=== PATIENT | female | born 1975 | race Caucasian/White ===

== ENCOUNTER 2016-06-08 00:42 | Inpatient (IN) | payer OTHER ==
[2016-06-08] MEDS ORDERED: ONDANSETRON 4 MG/2 ML VIAL IVP STA (00:52)
[2016-06-08] MEDS ORDERED: HYDROmorphone 1 MG/ML 1 ML SYRINGE IVP STA ×2 (00:52→02:31)
[2016-06-08] MEDS ORDERED: SODIUM CHLORIDE 0.9% 1,000 ML IV STA (00:52)
[2016-06-08] MEDS ORDERED: RX INFO: IV CONTRAST WAS GIVEN 1 EACH MISC MISCELLANE PRN (01:12)
[2016-06-08 01:18] LABS: Basophils # (A) 0.1 k/uL (0-0.2); Basophils % (A) 0 %; CH 29.4; CHCM 33.9; Eosinophils # (A) 0.3 k/uL (0-0.7); Eosinophils % (A) 2 %; HCT 38.8 % (34.0-46.0); HDW 2.33; HGB 13.2 gm/dL (11.4-16.0); Luc # (Auto) 0.14; Luc % (Auto) 1; Lymphocytes # (A) 2.2 k/uL (1.0-4.8); Lymphocytes % (A) 15 %; MCH 29.7 pg (25.0-35.0); MCHC 34.1 g/dL (31.0-37.0); MCV 87.1 fL (80.0-100.0); Mean Platelet Volume 7.1; Monocytes # (A) 0.5 k/uL (0-1.0); Monocytes % (A) 4 %; Neutrophils # (A) 11.2 k/uL (1.3-7.7); Neutrophils % (A) 78 %; RBC 4.45 m/uL (3.80-5.40); RDW 12.9 % (11.5-15.5); WBC 14.4 k/uL (3.8-10.6); WBC (Perox) 15.08
[2016-06-08] MEDS ORDERED: KETOROLAC 30 MG/ML 1 ML VIAL IVP STA (01:19)
[2016-06-08 01:25] LABS: ALT 32 U/L (9-52); AST 18 U/L (14-36); Alkaline Phosphatase 89 U/L (38-126); Amylase <30 U/L (30-110); Anion Gap 10 mmol/L; Blood Urea Nitrogen 13 mg/dL (7-17); Calcium 9.8 mg/dL (8.4-10.2); Carbon Dioxide 25 mmol/L (22-30); Chloride 106 mmol/L (98-107); Glucose 110 mg/dL (74-99); Non-African American GFR(MDRD) >60 (>60 ml/min/1.73 sqM); Potassium 4.2 mmol/L (3.5-5.1); Sodium 141 mmol/L (137-145); Total Bilirubin 0.5 mg/dL (0.2-1.3); Total Protein 7.7 g/dL (6.3-8.2)
--- NOTE | 2016-06-08 01:34 | ED ---
General Adult HPI - General Chief complaint: Abdominal Pain Stated complaint: LRQ Pain Time Seen by Provider: 06/08/16 00:52 Source: patient, RN notes reviewed Mode of arrival: ambulatory Limitations: no limitations - History of Present Illness Initial comments: Patient is a 32-year-old female with chief complaint of abdominal pain for approximately 2 days. She reports that it was mainly in her epigastric and periumbilical region yesterday however the pain has persisted and is now migrated towards right lower quadrant. She states that she's had a history of C -sections but denies any other abdominal surgeries. She reports that she is nauseated but denies any vomiting. She states she had a normal bowel movement today and was able to eat normally. She states that the pain is not worse with eating. She denies any dysuria, hematuria or vaginal discharge. She is currently using the NuvaRing and her last menstrual period was proximally 5 years ago. She states that she has a sharp stabbing pain in her right lower quadrant. She reports that she is extremely tender. Patient denies any recent fever, chills, shortness of breath, chest pain, back pain, abdominal pain, nausea vomiting, numbness or tingling, dysuria or hematuria, constipation or diarrhea, headaches or visual changes, or any other current symptoms - Related Data Home Medications Medication Instructions Recorded Confirmed Etonogestrel/Ethinyl Estradiol 1 each VG 06/08/16 [Nuvaring Vaginal Ring] Allergies Allergy/AdvReac Type Severity Reaction Status Date / Time No Known Allergies Allergy Verified 06/08/16 00:50 Review of Systems ROS Statement: Those systems with pertinent positive or pertinent negative responses have been documented in the HPI. ROS Other: All systems not noted in ROS Statement are negative. Past Medical History Past Medical History: No Reported History History of Any Multi-Drug Resistant Organisms: None Reported Past Surgical History: Section Past Psychological History: No Psychological Hx Reported Smoking Status: Current every day smoker Past Alcohol Use History: Rare Past Drug Use History: None Reported General Exam - General Exam Comments Initial Comments: Well-appearing 40-year-old female. No acute distress. Limitations: no limitations General appearance: alert, in no apparent distress Head exam: Present: atraumatic, normocephalic, normal inspection Eye exam: Present: normal appearance, PERRL, EOMI. Absent: scleral icterus, conjunctival injection, periorbital swelling ENT exam: Present: normal exam, normal oropharynx, mucous membranes moist, TM's normal bilaterally Neck exam: Present: normal inspection. Absent: tenderness, meningismus, lymphadenopathy Respiratory exam: Present: normal lung sounds bilaterally. Absent: respiratory distress, wheezes, rales, rhonchi, stridor Cardiovascular Exam: Present: regular rate, normal rhythm, normal heart sounds. Absent: systolic murmur, diastolic murmur, rubs, gallop, clicks GI/Abdominal exam: Present: soft, tenderness (RLQ tenderness. ), normal bowel sounds. Absent: distended, guarding, rebound, rigid Extremities exam: Present: normal inspection, full ROM, normal capillary refill. Absent: tenderness, pedal edema, joint swelling, calf tenderness Back exam: Present: normal inspection Neurological exam: Present: alert, oriented X3, CN II-XII intact Psychiatric exam: Present: normal affect, normal mood Skin exam: Present: warm, dry, intact, normal color. Absent: rash Course Vital Signs 06/08/16 06/08/16 00:46 02:54 Temperature 98.1 F Pulse Rate 98 81 Respiratory 20 18 Rate Blood Pressure 147/85 120/70 O2 Sat by Pulse 100 100 Oximetry Medical Decision Making - Medical Decision Making Patient is a 32-year-old female with chief complaint of abdominal pain for approximately 2 days. She reports that it was mainly in her epigastric and periumbilical region yesterday however the pain has persisted and is now migrated towards right lower quadrant. She states that she's had a history of C -sections but denies any other abdominal surgeries. She denies any significant past medical history. Patient laboratory show evidence of leukocytosis of white count of 14.4. CT abdomen and pelvis was obtained. There is evidence of acute appendicitis. Patient will be started on IV Zosyn. Patient will be given pain medication as well. Dr. Acosta Spangler will be consulted in regards to the acute appendicitis. I discussed this case with Dr. Lakhani. - Lab Data Result diagrams: 06/08/16 01:05 06/08/16 01:05 Lab Results 06/08/16 06/08/16 06/08/16 Range/Units 01:05 01:05 01:05 WBC 14.4 H (3.8-10.6) k/uL RBC 4.45 (3.80-5.40) m/uL Hgb 13.2 (11.4-16.0) gm/dL Hct 38.8 (34.0-46.0) % MCV 87.1 (80.0-100.0) fL MCH 29.7 (25.0-35.0) pg MCHC 34.1 (31.0-37.0) g/dL RDW 12.9 (11.5-15.5) % Plt Count 250 (150-450) k/uL Neutrophils % 78 % Lymphocytes % 15 % Monocytes % 4 % Eosinophils % 2 % Basophils % 0 % Neutrophils # 11.2 H (1.3-7.7) k/uL Lymphocytes # 2.2 (1.0-4.8) k/uL Monocytes # 0.5 (0-1.0) k/uL Eosinophils # 0.3 (0-0.7) k/uL Basophils # 0.1 (0-0.2) k/uL Sodium 141 (137-145) mmol/L Potassium 4.2 (3.5-5.1) mmol/L Chloride 106 (98-107) mmol/L Carbon Dioxide 25 (22-30) mmol/L Anion Gap 10 mmol/L BUN 13 (7-17) mg/dL Creatinine 0.80 (0.52-1.04) mg/dL Est GFR (MDRD) Af Amer >60 (>60 ml/min/1.73 sqM) Est GFR (MDRD) Non-Af >60 (>60 ml/min/1.73 sqM) Glucose 110 H (74-99) mg/dL Plasma Lactic Acid Butser 1.0 (0.7-2.0) mmol/L Calcium 9.8 (8.4-10.2) mg/dL Total Bilirubin 0.5 (0.2-1.3) mg/dL AST 18 (14-36) U/L ALT 32 (9-52) U/L Alkaline Phosphatase 89 (38-126) U/L Total Protein 7.7 (6.3-8.2) g/dL Albumin 4.2 (3.5-5.0) g/dL Amylase <30 L (30-110) U/L Lipase 66 (23-300) U/L Urine Color Urine Appearance (Clear) Urine pH (5.0-8.0) Ur Specific Trout (1.001-1.035) Urine Protein (Negative) Urine Glucose (UA) (Negative) Urine Ketones (Negative) Urine Blood (Negative) Urine Nitrate (Negative) Urine Bilirubin (Negative) Urine Urobilinogen (<2.0) mg/dL Ur Leukocyte Esterase (Negative) Urine RBC (0-5) /hpf Urine WBC (0-5) /hpf Ur Squamous Epith Cells (0-4) /hpf Urine Bacteria (None) /hpf Urine Mucus (None) /hpf Urine HCG, Qual (Not Detectd) 06/08/16 06/08/16 Range/Units 01:25 01:25 WBC (3.8-10.6) k/uL RBC (3.80-5.40) m/uL Hgb (11.4-16.0) gm/dL Hct (34.0-46.0) % MCV (80.0-100.0) fL MCH (25.0-35.0) pg MCHC (31.0-37.0) g/dL RDW (11.5-15.5) % Plt Count (150-450) k/uL Neutrophils % % Lymphocytes % % Monocytes % % Eosinophils % % Basophils % % Neutrophils # (1.3-7.7) k/uL Lymphocytes # (1.0-4.8) k/uL Monocytes # (0-1.0) k/uL Eosinophils # (0-0.7) k/uL Basophils # (0-0.2) k/uL Sodium (137-145) mmol/L Potassium (3.5-5.1) mmol/L Chloride (98-107) mmol/L Carbon Dioxide (22-30) mmol/L Anion Gap mmol/L BUN (7-17) mg/dL Creatinine (0.52-1.04) mg/dL Est GFR (MDRD) Af Amer (>60 ml/min/1.73 sqM) Est GFR (MDRD) Non-Af (>60 ml/min/1.73 sqM) Glucose (74-99) mg/dL Plasma Lactic Acid Buster (0.7-2.0) mmol/L Calcium (8.4-10.2) mg/dL Total Bilirubin (0.2-1.3) mg/dL AST (14-36) U/L ALT (9-52) U/L Alkaline Phosphatase (38-126) U/L Total Protein (6.3-8.2) g/dL Albumin (3.5-5.0) g/dL Amylase (30-110) U/L Lipase (23-300) U/L Urine Color Yellow Urine Appearance Clear (Clear) Urine pH 6.0 (5.0-8.0) Ur Specific Trout 1.010 (1.001-1.035) Urine Protein Negative (Negative) Urine Glucose (UA) Negative (Negative) Urine Ketones Negative (Negative) Urine Blood Small H (Negative) Urine Nitrate Negative (Negative) Urine Bilirubin Negative (Negative) Urine Urobilinogen <2.0 (<2.0) mg/dL Ur Leukocyte Esterase Negative (Negative) Urine RBC 3 (0-5) /hpf Urine WBC 1 (0-5) /hpf Ur Squamous Epith Cells <1 (0-4) /hpf Urine Bacteria Rare H (None) /hpf Urine Mucus Rare H (None) /hpf Urine HCG, Qual Not Detected (Not Detectd) - Radiology Data Radiology results: report reviewed Disposition Clinical Impression: Acute appendicitis Disposition: ADMITTED IP TO THIS [facility] Condition: Stable Time of Disposition: 02:42
[2016-06-08 01:47] LABS: Appearance,Urine Clear (Clear); Bacteria,Urine Rare /hpf; Bilirubin,Urine Negative (Negative); Glucose,Urine (UA) Negative (Negative); Ketones,Urine Negative (Negative); Leukocyte Esterase,Urine Negative (Negative); Mucus,Urine Rare /hpf; Nitrite,Urine Negative (Negative); Particle Count 1200; Protein,Urine Negative (Negative); RBC,Urine 3 /hpf (0-5); Squamous Epithelial Cell,Urine <1 /hpf (0-4); UA Billing (MACRO vs. MICRO) MICRO; Urobilinogen,Urine <2.0 mg/dL (<2.0); WBC,Urine 1 /hpf (0-5)
--- NOTE | 2016-06-08 02:16 | CT ---
EXAM: CT Abdomen and Pelvis With Intravenous Contrast. CLINICAL HISTORY: Reason: RLQ abdominal pain TECHNIQUE: Axial computed tomography images of the abdomen and pelvis with intravenous contrast. CTDI is 11.00 mGy and DLP is 530.00 mGy-cm COMPARISON: No relevant prior studies available. FINDINGS: Lower thorax: No acute findings. ABDOMEN: Liver: Unremarkable. No mass. Gallbladder and bile ducts: Unremarkable. No calcified stones. No ductal dilation. Pancreas: Unremarkable. No ductal dilation. No mass. Spleen: Unremarkable. No splenomegaly. Adrenals: Unremarkable. No mass. Kidneys and ureters: Unremarkable. No hydronephrosis. No solid mass. PELVIS: Bladder: Unremarkable. No mass. Reproductive: Unremarkable as visualized. Appendix: Dilated appendix, containing a 15 mm appendicolith proximally within, with periappendiceal inflammatory changes consistent with acute appendicitis. There is trace amount of adjacent free fluid without evidence of loculated drainable fluid collection to suggest abscess, nor free air. ABDOMEN + PELVIS: Stomach and bowel: Note is made of debris-filled stomach. There are punctate foci of increased density admixed with stool in the right colon, presumably from previously ingested material. No obstruction. No mucosal thickening. Peritoneum: See above. Lymph nodes: There are a few borderline prominent right lower quadrant mesenteric nodes, presumably reactive/related. Vasculature: Unremarkable. No aortic aneurysm. Bones: No acute fracture. Smoothly marginated endplate irregularities at several levels, which may be a combination of degenerative and/or sequela from prior Scheuermann's disease. IMPRESSION: Findings consistent with acute appendicitis, as above. [employer] 06/08/16 02:21 Call Doctor Regarding Appendicitis, called YAJAIRA Dunn on 06/08 02:21 (-05:00)
[2016-06-08] MEDS ORDERED: diphenhydrAMINE 50 MG/ML 1 ML VIAL IVP STA (02:31)
[2016-06-08] MEDS ORDERED: PIPERACILLIN-TAZOBACTAM 3.375 GM in DEXTROSE/WATER 1 50ML.BAG IVPB STA (02:32)
[2016-06-08] MEDS ORDERED: HYDROmorphone 1 MG/ML 1 ML SYRINGE IV PRN (02:43)
[2016-06-08] MEDS ORDERED: ONDANSETRON 4 MG/2 ML VIAL IVP PRN ×2 (02:43→11:14)
[2016-06-08] MEDS ORDERED: LORazepam 2 MG/ML SYRINGE IV PRN (02:43)
[2016-06-08] MEDS ORDERED: NALOXONE 0.4 MG/ML 1 ML VIAL IV PRN ×2 (02:43→11:14)
[2016-06-08] MEDS: SODIUM CHLORIDE 0.9% 1,000 ML IV SCH ×3 (02:54→23:28)
[2016-06-08] MEDS ORDERED: diphenhydrAMINE 50 MG/ML 1 ML VIAL IVP PRN (03:04)
[2016-06-08 03:54] VITALS: BMI 30.7
[2016-06-08] MEDS: KETOROLAC 30 MG/ML 1 ML VIAL IVP PRN ×2 (04:09→23:39)
--- NOTE | 2016-06-08 08:21 | P.GSHP ---
History of Present Illness H&P Date: 06/08/16 Chief Complaint: Abdominal pain Patient is a 40-year-old white female who approximately 2 days ago began having some generalized abdominal pain. The pain then moved to the right lower quadrant area and she presented to the emergency room. A computed tomography scan was performed which revealed findings consistent with appendicitis. Patient's white blood cell count is 14.4. The patient has persistent pain in the right lower quadrant. Past surgical history: 2 Past medical history: Negative ALLERGIES: Reaction to Darvocet Review of systems: HEENT negative lungs smoker Heart negative GI as above 2 - Constitutional Constitutional: Reports as per HPI - Cardiovascular Cardiovascular: Reports as per HPI - Respiratory Respiratory: Reports as per HPI - Gastrointestinal Gastrointestinal: Reports as per HPI - Genitourinary (Female) Genitourinary: Reports as per HPI Past Medical History Past Medical History: No Reported History History of Any Multi-Drug Resistant Organisms: None Reported Past Surgical History: Section Additional Past Surgical History / Comment(s): 2 secions Additional Past Anesthesia/Blood Transfusion Reaction / Comment(s): no history of blood transfuion.drop in BP with ceserean section Past Psychological History: No Psychological Hx Reported Smoking Status: Current every day smoker Past Alcohol Use History: Rare Past Drug Use History: None Reported - Past Family History Mother Family Medical History: No Reported History Medications and Allergies Home Medications Medication Instructions Recorded Confirmed Type Etonogestrel/Ethinyl Estradiol 1 each VG 06/08/16 History [Nuvaring Vaginal Ring] Allergies Allergy/AdvReac Type Severity Reaction Status Date / Time acetaminophen Allergy Itching Verified 06/08/16 03:55 [From Darvocet-N] propoxyphene Allergy Itching Verified 06/08/16 03:55 [From Darvocet-N] Surgical - Exam Vital Signs Temp Pulse Resp BP Pulse Ox 98.1 F 98 20 147/85 100 06/08/16 00:46 06/08/16 00:46 06/08/16 00:46 06/08/16 00:46 06/08/16 00:46 - General well developed, moderate distress, obese - Eyes normal ocular movement - ENT normal pinna, normal mucosa, no hearing loss - Neck no masses, trachea midline, no lymphadectomy - Respiratory normal expansion, normal respiratory effort, clear to auscultation - Cardiovascular Rhythm: regular Heart Sounds: normal: S1, S2 - Abdomen Patient with marked tenderness right lower quadrant positive guarding Remainder of abdomen is soft Abdomen: bowel sounds - Psychiatric oriented to time, oriented to person, oriented to place, speech is normal Results - Labs 06/08/16 01:05 06/08/16 01:05 - Imaging CT scan - abdomen: report reviewed, image reviewed CT scan - pelvis: report reviewed, image reviewed Assessment and Plan Plan: Impression/plan: 1. Acute appendicitis 2. Status post 2 Plan: 1. Laparoscopic possible open appendectomy and any indicated procedures Patient understands the risks and benefits and wishes to proceed.
[2016-06-08] MEDS ORDERED: HEPARIN SODIUM,PORCINE 5,000 UNIT/ML 1 ML VIAL SQ ONE (08:22)
[2016-06-08] MEDS ORDERED: fentaNYL (PF) 50 MCG/ML 2 ML AMP ONE (09:18)
[2016-06-08] MEDS ORDERED: ONDANSETRON 4 MG/2 ML VIAL ONE (09:18)
[2016-06-08] MEDS ORDERED: SUCCINYLCHOLINE CHLORIDE VIAL 200 MG/10 ML VIAL IV ONE (09:18)
[2016-06-08] MEDS ORDERED: ROCURONIUM BROMIDE 10 MG/ML 10 ML VIAL IV ONE (09:18)
[2016-06-08] MEDS ORDERED: MIDAZOLAM 2 MG/2 ML VIAL ONE (09:18)
[2016-06-08] MEDS ORDERED: PROPOFOL 10 MG/ML 20 ML VIAL IV ONE (09:18)
[2016-06-08] MEDS ORDERED: NEOSTIGMINE 1 MG/ML 10 ML VIAL ONE (09:18)
[2016-06-08] MEDS ORDERED: KETOROLAC 30 MG/ML 1 ML VIAL ONE (09:18)
[2016-06-08] MEDS ORDERED: LIDOCAINE 1% INJ 10MG/ML (20 ML MDV) SQ ONE (09:40)
[2016-06-08] MEDS ORDERED: SODIUM CHLORIDE 0.9% 1,000 ML IV ONE (09:40)
[2016-06-08] MEDS ORDERED: PIPERACILLIN-TAZOBACTAM 3.375 GM in DEXTROSE/WATER 1 50ML.BAG IVPB SCH ×2 (11:00→16:00)
--- NOTE | 2016-06-08 11:14 | P.OP ---
Date of Procedure: 06/08/16 Preoperative Diagnosis: Acute appendicitis Postoperative Diagnosis: Same, extensive adhesions Procedure(s) Performed: Laparoscopic appendectomy, laparoscopic lysis of adhesions Anesthesia: NAREN Surgeon: Jayleen Green Estimated Blood Loss (ml): 10 IV fluids (ml): 200 Urine output (ml): 60 Pathology: other (Appendix) Condition: stable Disposition: PACU Indications for Procedure: Acute abdomen acute appendicitis Operative Findings: Extensive adhesions, inflamed appendix Description of Procedure: The patient is a 40-year-old white female has had a several-day history of abdominal discomfort. This increased in nature and moved to the right lower quadrant area. Computed tomography scan finding and physical examination history were consistent with acute appendicitis. Patient was taken to the operating room after discussion of risks and benefits for laparoscopic possible open appendectomy. Patient has had 2 C-sections in the past and discussion was entertained preoperative regarding the possible need for adhesional lysis. The patient was taken to the operating room and the abdomen was prepped and draped in a sterile fashion. An infraumbilical incision was made and carried down to the fascia of the abdominal wall. This was elevated and under direct visualization the peritoneal cavity was entered. A balloon trocar was placed. Upon introduction of the trocar it was obvious that there were adhesions from the umbilicus extending inferior which were felt to be related to the prior C-sections. Were able to place #5 port in the suprapubic area under direct visualization and a #12 port which was blunt in the left lower quadrant area. However in order to facilitate further dissection it was necessary to carefully take down the adhesions to the anterior abdominal wall. This was accomplished using the Harmonic scalpel. An #5 camera was placed in the suprapubic area to facilitate the dissection. It was also necessary to change to an angled scope. It was necessary to change the balloon trocar during the course of the dissection secondary to deflation of the balloon. Additionally to provide better access an additional #5 port was placed in the right lower quadrant. Through careful dissection the adhesions were taken down from the anterior abdominal wall allowing visualization of the appendix, and manipulation of the appendix and mesoappendix via the trocar sites. After the adhesions had been taken down which took approximately half an hour the area of the appendix was addressed. The appendix was grasped using a Chester retractor. The mesoappendix was divided using the Harmonic scalpel to the base of the appendix. A stapling device was placed across the appendix and fired. The area was well evaluated and there was no evidence of any bleeding. The appendix was placed in a Pleatman sac and brought out through the #12 left lateral port site. Following this the abdomen was well irrigated. No evidence of any active bleeding was noted. The area where the adhesions had been taken down was well evaluated. The #5 right lower quadrant trocar was removed under direct visualization no evidence of any bleeding was noted. At this time the #12 port was removed this was a blunt trocar no evidence of active bleeding was identified. Despite this using direct visualization a Vicryl suture was placed at this site using a Lamont Mendosa device. Following this irrigation of the site did not reveal any evidence of any bleeding. The final #5 trocar was removed under direct visualization no evidence of bleeding was identified. The balloon trocar was removed and the fascia was closed using 0 Vicryl suture. Skin sites were closed using 4-0 Monocryl. One percent lidocaine was injected at the incision sites. All instrument and sponge counts were correct at the end of the case. Patient tolerated the procedure in stable condition.
[2016-06-08] MEDS: MEPERIDINE 50 MG/ML SYRINGE IVP ONE ×2 (11:15→11:20)
[2016-06-08] MEDS ORDERED: MIDAZOLAM 2 MG/2 ML VIAL IVP ONE (11:25)
[2016-06-08] MEDS: HYDROmorphone 1 MG/ML 1 ML SYRINGE IVP ONE ×2 (11:35→11:44)
[2016-06-08] MEDS: NICOTINE 14MG/24HR PATCH TRANSDERM SCH (12:34)
[2016-06-08] MEDS: DEXTROSE 5%-0.45% NACL 1,000 ML IV SCH ×2 (16:05→21:37)
[2016-06-08] MEDS: PIPERACILLIN-TAZOBACTAM 3.375 GM in DEXTROSE/WATER 1 50ML.BAG IVPB SCH ×2 (16:06→23:55)
[2016-06-08] MEDS: HYDROmorphone 1 MG/ML 1 ML SYRINGE IV PRN ×2 (16:11→20:46)
[2016-06-08] MEDS ORDERED: ACETAMINOPHEN TAB 325 MG TAB PO PRN (19:57)
[2016-06-08] MEDS: ACETAMINOPHEN TAB 325 MG TAB PO PRN (20:10)
[2016-06-08] MEDS: HEPARIN SODIUM,PORCINE 5,000 UNIT/ML 1 ML VIAL SQ SCH (20:48)
[2016-06-09] MEDS: DEXTROSE 5%-0.45% NACL 1,000 ML IV SCH ×2 (01:47→20:51)
[2016-06-09] MEDS: ACETAMINOPHEN TAB 325 MG TAB PO PRN (03:27)
[2016-06-09 07:12] LABS: Basophils % (A) 0 %; CH 29.3; CHCM 32.8; Eosinophils % (A) 0 %; HCT 33.5 % (34.0-46.0); HDW 2.23; HGB 10.7 gm/dL (11.4-16.0); Luc # (Auto) 0.09; Luc % (Auto) 2; Lymphocytes # (A) 1.2 k/uL (1.0-4.8); Lymphocytes % (A) 20 %; MCH 28.7 pg (25.0-35.0); MCV 89.8 fL (80.0-100.0); Mean Platelet Volume 6.6; Monocytes # (A) 0.3 k/uL (0-1.0); Monocytes % (A) 4 %; Neutrophils # (A) 4.4 k/uL (1.3-7.7); Neutrophils % (A) 74 %; RBC 3.73 m/uL (3.80-5.40); RDW 12.7 % (11.5-15.5); WBC 5.9 k/uL (3.8-10.6); WBC (Perox) 6.33
[2016-06-09] MEDS: PIPERACILLIN-TAZOBACTAM 3.375 GM in DEXTROSE/WATER 1 50ML.BAG IVPB SCH ×2 (07:18→17:47)
[2016-06-09] MEDS: SODIUM CHLORIDE 0.9% 1,000 ML IV SCH ×3 (07:26→20:56)
[2016-06-09] MEDS: NICOTINE 14MG/24HR PATCH TRANSDERM SCH (07:26)
[2016-06-09] MEDS: HEPARIN SODIUM,PORCINE 5,000 UNIT/ML 1 ML VIAL SQ SCH ×2 (07:26→20:51)
[2016-06-09] MEDS: PANTOPRAZOLE 40 MG/10 ML VIAL IV SCH (07:26)
[2016-06-09] MEDS: KETOROLAC 30 MG/ML 1 ML VIAL IVP PRN ×2 (09:05→21:51)
--- NOTE | 2016-06-09 10:20 | P.PN ---
Subjective 40-year-old female being seen with the surgeon at the bedside this morning. Patient is postop laparoscopic appendectomy laparoscopic lysis of adhesions done for an acute appendicitis on June 08. Postop did note the patient did run a temp maxed at 101.9 had 8:00 last evening. The temp this morning 99.2. The white count this morning is down to 5.9. On admission the white count was 14.4. Patient reports pain medication effective for pain control. Does have a Rex-Iyer drain in place currently patient is on a clear liquid diet there' s been no episodes of nausea or vomiting patient does report that she has been up ambulating. No stool passing gas Objective - Vital Signs Vital signs: Vital Signs Temp 99.2 F 06/09/16 07:31 Pulse 78 06/09/16 07:31 Resp 18 06/09/16 07:31 BP 107/69 06/09/16 07:31 Pulse Ox 96 06/09/16 07:31 Intake & Output 06/08/16 06/09/16 06/09/16 18:59 06:59 18:59 Intake Total 1362.5 1200 Output Total 320 Balance 1042.5 1200 Intake: IV 1350 1200 Dextrose 5%-0.45% NaCl 1, 800 000 ml @ 100 mls/hr IV . Q10H FOX Rx#:[id number] Sodium Chloride 0.9% 1, 500 400 000 ml @ 100 mls/hr IV . Q10H FOX Rx#:[id number] Intake, IV Titration 12.5 Amount Piperacillin-Tazobactam 3 12.5 .375 gm In Dextrose/Water 1 50ml.bag @ 12.5 mls/hr IVPB Q8HR FOX Rx#: [id number] Output: Urine 310 Estimated Blood Loss 10 Other: Voiding Method Toilet Toilet Toilet # Voids 1 2 1 - Exam Physical exam 40-year-old female resting in bed awake alert appears in no acute distress Lungs essentially clear adequate air movement on room air sats are 96% Heart S1-S2 audible and regular Abdomen surgical dressings dry no redness at the site slight surgical tenderness active bowel tones noted Rex-Iyer drain in place scant amount of serous drainage noted in the bulb no reports of nausea vomiting states urinating no difficulty extremities Venodyne's on to the bilateral lower extremities - Labs CBC & Chem 7: 06/09/16 06:50 06/08/16 01:05 Labs: Abnormal Lab Results - Last 24 Hours (Table) 06/09/16 Range/Units 06:50 RBC 3.73 L (3.80-5.40) m/uL Hgb 10.7 L (11.4-16.0) gm/dL Hct 33.5 L (34.0-46.0) % Microbiology - Last 24 Hours (Table) 06/08/16 10:51 Gram Stain - Preliminary Abdomen Wound Culture - Preliminary Gram Neg Bacilli 06/08/16 10:51 Anaerobic Culture - Preliminary Abdomen Assessment and Plan Plan: Impression Present on admission abdominal pain past several days right lower quadrant suspect due to acute pancreatitis Laparoscopic appendectomy, laparoscopic lysis of adhesions done on June 08 for acute pancreatitis Present on admission leukocytosis likely reactive Current every day smoker Postop episodes febrile Plan Continue postop surgical care Pain control Increase activity Increase the use of the incentive spirometer use every 1 hour while awake IV fluid for rehydration DVT and GI prophylaxis Repeat labs in the morning Diet to be advanced as tolerated Continue IV antibiotics Zosyn as ordered Follow-up on pending wound cultures Thyroid studies pending Await recommendations infectious disease Dr. Curry The above dictated assessment and findings were discussed with dr Soledad anders Impression and the plan of care have been dictated as directed. Faye Lara nurse practitioner acting as a scribe for Dr. Hanna
[2016-06-09 12:43] LABS: Appearance,Urine Clear (Clear); Bacteria,Urine Rare /hpf; Bilirubin,Urine Negative (Negative); Glucose,Urine (UA) Negative (Negative); Ketones,Urine Negative (Negative); Leukocyte Esterase,Urine Negative (Negative); Nitrite,Urine Negative (Negative); PH, Urine 6.5 (5.0-8.0); Particle Count 1907; Protein,Urine Negative (Negative); RBC,Urine 2 /hpf (0-5); Specific Gravity,Urine 1.006 (1.001-1.035); Squamous Epithelial Cell,Urine <1 /hpf (0-4); UA Billing (MACRO vs. MICRO) MICRO; Urobilinogen,Urine <2.0 mg/dL (<2.0); WBC,Urine 2 /hpf (0-5)
--- NOTE | 2016-06-09 19:48 | P.CONS ---
History of Present Illness - Reason for Consult Consult date: 06/09/16 - Chief Complaint Abdominal pain - History of Present Illness Very pleasant 40-year-old female with a 48 hour history of progressive abdominal pain. She has a history of some prior difficulties with gastritis and patient was concerned she was having these type of symptoms. However after work or abdominal pain markedly increased she felt nauseated but did not have emesis. She does he presented to the emergency center. There should evidence of fever and leukocytosis. Imaging studies reveal evidence of acute appendicitis. The patient consequently was taken to the operating room where laparoscopic appendectomy as well as lysis of adhesions occurred. Postoperatively patient has had fever and does have leukocytosis and with that the infectious diseases consultation was requested. Review of Systems HEENT:Denies headache or acute visual change. Denies sinus or mouth discomforts. Denies neck stiffness or pain. Denies significant oral cavity pain. Denies difficulty on swallowing. Lungs: Denies significant shortness of breath, cough, sputum production, or hemoptysis. Cardiovascular: Denies significant shortness of breath, chest pain, chest wall pain, orthopnea, dyspnea on exertion, syncope Gastrointestinal: As per the HPI Musculoskeletal: denies significant myalgias or arthralgias. No new joint swelling. Denies new back pain. Skin: Denies new rash or lesions. No new ulcers or wounds are related.. Neuro: Denies headache or visual change. Denies any new onset weakness or difficulty with ambulation. Denies falls or seizures. Psychiatric:Denies anxiety or depression. Endocrine: Denies significant fatigue, denies significant weight loss or weight gain. Past Medical History Past Medical History: No Reported History History of Any Multi-Drug Resistant Organisms: None Reported Past Surgical History: Section Additional Past Surgical History / Comment(s): 2 secions Additional Past Anesthesia/Blood Transfusion Reaction / Comm: no history of blood transfuion.drop in BP with ceserean section Past Psychological History: No Psychological Hx Reported Additional Psychological History / Comment(s): . Sole parent of her two teenage daughters. The father apparently does not help with child support and does not seem to have much custody. The patient is a tobacco smoker no alcohol use. Works for the [employer]. No experience. No international travel. No animals in the home. Appearance are alive and well in helpful Smoking Status: Current every day smoker Past Alcohol Use History: Rare Past Drug Use History: None Reported - Past Family History Mother Family Medical History: No Reported History Medications and Allergies Home Medications and Allergies Comment(s): Current Medications Acetaminophen (Tylenol Tab) 325 mg PO Q6HR PRN PRN Reason: Fever and/ or Mild Pain Acetaminophen (Tylenol Tab) 650 mg PO Q6HR PRN PRN Reason: Fever and/ or Moderate Pain Last Admin: 06/09/16 03:27 Dose: 650 mg Diphenhydramine HCl (Benadryl) 25 mg IVP Q6HR PRN PRN Reason: Allergy Symptoms Heparin Sodium (Porcine) (Heparin) 5,000 unit SQ Q12HR [facility] Last Admin: 06/09/16 07:26 Dose: 5,000 unit Hydromorphone HCl (Dilaudid) 1 mg IV Q3HR PRN PRN Reason: Severe Pain Last Admin: 06/08/16 20:46 Dose: 0.5 mg Sodium Chloride (Saline 0.9%) 1,000 mls @ 100 mls/hr IV .Q10H [facility] Last Admin: 06/09/16 07:26 Dose: Not Given Dextrose/Sodium Chloride (Dextrose 5%-1/2ns Iv Soln) 1,000 mls @ 100 mls/hr IV .Q10H [facility] Last Admin: 06/09/16 01:47 Dose: 100 mls/hr Piperacillin/Tazobactam/ (Dextrose 3.375 gm/ IV Solution) 50 mls @ 12.5 mls/hr IVPB Q8HR [facility] Last Admin: 06/09/16 17:47 Dose: 12.5 mls/hr Ketorolac Tromethamine (Toradol) 30 mg IVP Q6HR PRN PRN Reason: Moderate Pain Stop: 06/13/16 02:44 Last Admin: 06/09/16 09:05 Dose: 30 mg Lorazepam (Ativan) 0.5 mg IV Q6HR PRN PRN Reason: Anxiety Miscellaneous Information (Rx Info: Iv Contrast Was Given) 1 each MISCELLANE DAILY PRN PRN Reason: Per Protocol Stop: 06/10/16 01:13 Naloxone HCl (Narcan) 0.2 mg IV Q2M PRN PRN Reason: Opioid Reversal Nicotine (Habitrol 14mg/24hr Patch) 1 patch TRANSDERM DAILY [facility] Last Admin: 06/09/16 07:26 Dose: Not Given Ondansetron HCl (Zofran) 4 mg IVP Q8HR PRN PRN Reason: Nausea And Vomiting Pantoprazole Sodium (Protonix) 40 mg IV DAILY [facility] Last Admin: 06/09/16 07:26 Dose: 40 mg Home Medications Medication Instructions Recorded Confirmed Type Etonogestrel/Ethinyl Estradiol 1 ring VAGINAL Q28D 06/08/16 06/08/16 History [Nuvaring Vaginal Ring] Allergies Allergy/AdvReac Type Severity Reaction Status Date / Time acetaminophen Allergy Itching Verified 06/08/16 11:02 [From Darvocet-N] propoxyphene Allergy Itching Verified 06/08/16 11:02 [From Darvocet-N] Physical Exam Vitals: Vital Signs Temp Pulse Resp BP Pulse Ox 06/09/16 14:56 98.4 F 82 17 104/70 99 06/09/16 07:31 99.2 F 78 18 107/69 96 06/09/16 04:34 99.6 F 06/09/16 03:25 100.9 F H 06/09/16 00:49 99.6 F 89 18 101/57 95 06/08/16 21:48 99.7 F H 84 105/53 98 06/08/16 21:39 101.3 F H 06/08/16 19:49 101.9 F H 06/08/16 19:48 101.6 F H 84 16 123/56 98 Intake and Output 06/09/16 06/09/16 06/09/16 06:59 14:59 22:59 Intake Total 800 600 360 Balance 800 600 360 Intake: IV 800 Dextrose 5%-0.45% NaCl 1, 800 000 ml @ 100 mls/hr IV . Q10H [facility] Rx#:[id number] Oral 600 360 Other: Voiding Method Toilet Toilet Toilet # Voids 2 2 Pleasant 40-year-old woman not in distress HEENT: Anicteric conjunctiva are pink and moist nasal mucosa grossly intact without significant lesions, there is no thrush. Neck: The neck is supple without significant lymphadenopathy or thyromegaly. Lungs: Good bilateral air entry without significant crackles or wheezing. There is no significant bronchial sounds. There is no egophony or dullness. Heart: Regular rate and rhythm with an audible S1-S2, no S3 no S4. There is no significant murmur click or rub, PMI was nondisplaced. Abdomen: Few bowel sounds are noted. The trochanter sites are healing well. She still has tenderness in the right lower quadrant. No guarding or rebound. No epigastric tenderness. Extremities: The upper extremities have excellent pulses they are symmetric, no significant petechiae or telangiectasia. No splinter hemorrhages were noted. The lower extremities are free from significant edema. The peripheral pulses were 2+ and symmetric. Neuro: Awake alert oriented to person place and time. There are no acute new gross focal sensory motor deficits. Results CBC & Chem 7: 06/09/16 06:50 06/08/16 01:05 Labs: Abnormal Lab Results - Last 24 Hours (Table) 06/09/16 06/09/16 Range/Units 06:50 12:31 RBC 3.73 L (3.80-5.40) m/uL Hgb 10.7 L (11.4-16.0) gm/dL Hct 33.5 L (34.0-46.0) % Urine Blood Trace H (Negative) Urine Bacteria Rare H (None) /hpf Microbiology - Last 24 Hours (Table) 06/08/16 10:51 Gram Stain - Preliminary Abdomen Wound Culture - Preliminary Gram Neg Bacilli 06/08/16 10:51 Anaerobic Culture - Preliminary Abdomen Laboratory Results WBC 5.9 k/uL (3.8-10.6) 06/09/16 06:50 RBC 3.73 m/uL (3.80-5.40) L 06/09/16 06:50 Hgb 10.7 gm/dL (11.4-16.0) L 06/09/16 06:50 Hct 33.5 % (34.0-46.0) L 06/09/16 06:50 MCV 89.8 fL (80.0-100.0) 06/09/16 06:50 MCH 28.7 pg (25.0-35.0) 06/09/16 06:50 MCHC 32.0 g/dL (31.0-37.0) 06/09/16 06:50 RDW 12.7 % (11.5-15.5) 06/09/16 06:50 Plt Count 170 k/uL (150-450) 06/09/16 06:50 Neutrophils % 74 % 06/09/16 06:50 Lymphocytes % 20 % 06/09/16 06:50 Monocytes % 4 % 06/09/16 06:50 Eosinophils % 0 % 06/09/16 06:50 Basophils % 0 % 06/09/16 06:50 Neutrophils # 4.4 k/uL (1.3-7.7) 06/09/16 06:50 Lymphocytes # 1.2 k/uL (1.0-4.8) 06/09/16 06:50 Monocytes # 0.3 k/uL (0-1.0) 06/09/16 06:50 Eosinophils # 0.0 k/uL (0-0.7) 06/09/16 06:50 Basophils # 0.0 k/uL (0-0.2) 06/09/16 06:50 Sodium 141 mmol/L (137-145) 06/08/16 01:05 Potassium 4.2 mmol/L (3.5-5.1) 06/08/16 01:05 Chloride 106 mmol/L (98-107) 06/08/16 01:05 Carbon Dioxide 25 mmol/L (22-30) 06/08/16 01:05 Anion Gap 10 mmol/L 06/08/16 01:05 BUN 13 mg/dL (7-17) 06/08/16 01:05 Creatinine 0.80 mg/dL (0.52-1.04) 06/08/16 01:05 Est GFR (MDRD) Af Amer >60 (>60 ml/min/1.73 sqM) 06/08/16 01:05 Est GFR (MDRD) Non-Af >60 (>60 ml/min/1.73 sqM) 06/08/16 01:05 Glucose 110 mg/dL (74-99) H 06/08/16 01:05 Plasma Lactic Acid Buster 1.0 mmol/L (0.7-2.0) 06/08/16 01:05 Calcium 9.8 mg/dL (8.4-10.2) 06/08/16 01:05 Total Bilirubin 0.5 mg/dL (0.2-1.3) 06/08/16 01:05 AST 18 U/L (14-36) 06/08/16 01:05 ALT 32 U/L (9-52) 06/08/16 01:05 Alkaline Phosphatase 89 U/L (38-126) 06/08/16 01:05 Total Protein 7.7 g/dL (6.3-8.2) 06/08/16 01:05 Albumin 4.2 g/dL (3.5-5.0) 06/08/16 01:05 Amylase <30 U/L (30-110) L 06/08/16 01:05 Lipase 66 U/L (23-300) 06/08/16 01:05 TSH 0.762 mIU/L (0.465-4.680) 06/09/16 07:23 Free T4 1.91 ng/dL (0.78-2.19) 06/09/16 07:23 Free T3 pg/mL 3.3 pg/ml (2.8-5.3) 06/09/16 07:23 Urine Color Light Yellow 06/09/16 12:31 Urine Appearance Clear (Clear) 06/09/16 12:31 Urine pH 6.5 (5.0-8.0) 06/09/16 12:31 Ur Specific [place] 1.006 (1.001-1.035) 06/09/16 12:31 Urine Protein Negative (Negative) 06/09/16 12:31 Urine Glucose (UA) Negative (Negative) 06/09/16 12:31 Urine Ketones Negative (Negative) 06/09/16 12:31 Urine Blood Trace (Negative) H 06/09/16 12:31 Urine Nitrate Negative (Negative) 06/09/16 12:31 Urine Bilirubin Negative (Negative) 06/09/16 12:31 Urine Urobilinogen <2.0 mg/dL (<2.0) 06/09/16 12:31 Ur Leukocyte Esterase Negative (Negative) 06/09/16 12:31 Urine RBC 2 /hpf (0-5) 06/09/16 12:31 Urine WBC 2 /hpf (0-5) 06/09/16 12:31 Ur Squamous Epith Cells <1 /hpf (0-4) 06/09/16 12:31 Urine Bacteria Rare /hpf (None) H 06/09/16 12:31 Urine Mucus Rare /hpf (None) H 06/08/16 01:25 Urine HCG, Qual Not Detected (Not Detectd) 06/08/16 01:25 Microbiology 06/08/16 10:51 Abdomen Gram Stain - Preliminary 06/08/16 10:51 Abdomen Wound Culture - Preliminary Gram Neg Bacilli 06/08/16 10:51 Abdomen Anaerobic Culture - Preliminary Assessment and Plan (1) Acute appendicitis Narrative/Plan: 40-year-old woman with a history of abdominal pain without evidence of an acute appendicitis and subsequent placement taken the operating room for her laparoscopic appendectomy. She is now recovering in the postoperative time frame. She however had fever 101 last evening as well as some leukocytosis. Is feeling slightly better today. Culture showing evidence of gram-negative bacilli as expected. Being treated appropriately with piperacillin tazobactam at this time. Likely collagen morning will help direct her course of oral antibiotics at discharge. She does not have a history of extensive antibiotic exposure. She is looking forward to improving her diet and discharging tomorrow. She understands the surgeon is in charge of her ability to return to work which she is very concerned about because of her sole parent status. She does have many family members that will help. And suggest that she talks to the father of the children for help during this acute time frame. Status: Acute
[2016-06-09 20:22] VITALS: RESP 16
[2016-06-10] MEDS: PIPERACILLIN-TAZOBACTAM 3.375 GM in DEXTROSE/WATER 1 50ML.BAG IVPB SCH ×2 (00:06→08:03)
[2016-06-10 00:57] VITALS: PULSE 80
[2016-06-10] MEDS: DEXTROSE 5%-0.45% NACL 1,000 ML IV SCH (04:17)
[2016-06-10 06:43] LABS: Basophils % (A) 0 %; CH 29.4; CHCM 33.2; Eosinophils # (A) 0.1 k/uL (0-0.7); Eosinophils % (A) 2 %; HCT 32.4 % (34.0-46.0); HDW 2.33; HGB 10.7 gm/dL (11.4-16.0); Luc # (Auto) 0.13; Luc % (Auto) 2; Lymphocytes # (A) 1.9 k/uL (1.0-4.8); Lymphocytes % (A) 32 %; MCH 29.3 pg (25.0-35.0); MCV 88.8 fL (80.0-100.0); Mean Platelet Volume 7.1; Monocytes # (A) 0.3 k/uL (0-1.0); Monocytes % (A) 6 %; Neutrophils # (A) 3.3 k/uL (1.3-7.7); Neutrophils % (A) 58 %; RBC 3.65 m/uL (3.80-5.40); RDW 12.7 % (11.5-15.5); WBC 5.8 k/uL (3.8-10.6); WBC (Perox) 6.04
[2016-06-10 06:59] LABS: ALT 27 U/L (9-52); AST 21 U/L (14-36); Alkaline Phosphatase 68 U/L (38-126); Anion Gap 7 mmol/L; Blood Urea Nitrogen 5 mg/dL (7-17); Calcium 8.3 mg/dL (8.4-10.2); Carbon Dioxide 23 mmol/L (22-30); Chloride 111 mmol/L (98-107); Glucose 110 mg/dL (74-99); Non-African American GFR(MDRD) >60 (>60 ml/min/1.73 sqM); Potassium 4.1 mmol/L (3.5-5.1); Sodium 141 mmol/L (137-145); Total Bilirubin 0.5 mg/dL (0.2-1.3); Total Protein 5.8 g/dL (6.3-8.2)
[2016-06-10] MEDS: PANTOPRAZOLE 40 MG/10 ML VIAL IV SCH (08:03)
[2016-06-10] MEDS: HEPARIN SODIUM,PORCINE 5,000 UNIT/ML 1 ML VIAL SQ SCH (08:04)
[2016-06-10] MEDS: NICOTINE 14MG/24HR PATCH TRANSDERM SCH (08:04)
[2016-06-10 09:39] VITALS: BP 119/57; TEMP 98.7
--- NOTE | 2016-06-10 13:18 | P.DS ---
Providers Date of admission: 06/08/16 02:51 Expected date of discharge: 06/10/16 Attending physician: Jayleen Green Consults: 06/08/16 20:01 Consult Physician Routine Consulting Provider: Sridhar Curry Reason/Comments: acute appendicitis Do you want consulting provider notified?: Yes, Notify in am Primary care physician: Stated None Hospital Course: A 40-year-old female presented on the day of admission to the emergency room to be evaluated for a chief complaint of developing abdominal pain 2 days prior. Patient stated the pain is in the right lower quadrant. Patient felt a sensation of nausea the pain continued to persist. Came into the emergency room to be evaluated for the above-mentioned symptoms. The CAT scan of the abdomen showed findings consistent with appendicitis. The white count on admission was 14.4. Patient had persistent pain in the right lower quadrant. Patient has no significant past medical history. Patient was seen by surgical service. Patient elects to proceed with a Laparoscopic appendectomy, laparoscopic lysis of adhesions for an acute appendicitis with extensive adhesions done on June 08 Infectious disease to participate in the plan of care patient was seen by Dr. Curry. Patient did have a fever and leukocytosis and was started on the broad- spectrum anabiotic Zosyn. At the day of discharge patient's white count was down to 5.8. Pain medication effective for pain control patient was up ambulating passing gas stated abdominal pain significant improved and remained afebrile postop attempted max at 101.9 on June 08 at 8:00 tonight On the day of discharge infectious disease antibiotics recommended Augmentin for 1 week. Patient was felt to be hemodynamically stable and appropriate proceed with discharge Impression discharge diagnose Present on admission abdominal pain past several days right lower quadrant suspect due to acute appendicitis Laparoscopic appendectomy, laparoscopic lysis of adhesions done on June 08 for acute appendicitis Present on admission leukocytosis likely reactive resolved Current every day smoker Postop episodes febrile resolved Abdominal wound culture gram-negative bacilli The above dictated assessment and findings were discussed with dr Soledad Shane. Impression and the plan of care have been dictated as directed. Faye Lara nurse practitioner acting as a scribe for Dr. Hanna Patient Condition at Discharge: Stable Plan - Discharge Summary New Discharge Prescriptions: Amoxic-Pot Clav 875-125Mg [Augmentin 875-125] 1 tab PO Q12HR #14 tablet traMADol HCl [Ultram] 50 mg PO Q6H PRN #30 tab PRN Reason: Pain Discharge Medication List Etonogestrel/Ethinyl Estradiol [Nuvaring Vaginal Ring] 1 ring VAGINAL Q28D 06/08 [History] Acetaminophen Tab [Tylenol] 650 mg PO Q6HR PRN #0 tab 06/10/16 [Rx] Amoxic-Pot Clav 875-125Mg [Augmentin 875-125] 1 tab PO Q12HR #14 tablet [Rx] Nicotine 14Mg/24Hr Patch [Habitrol] 1 patch TRANSDERM DAILY patch 06/10/16 [Rx] traMADol HCl [Ultram] 50 mg PO Q6H PRN #30 tab 06/10/16 [Rx] Follow up Appointment(s)/Referral(s): Jayleen Green MD [STAFF PHYSICIAN] - 06/19/16 10:15 am None,Stated [Primary Care Provider] - 1-2 days Activity/Diet/Wound Care/Special Instructions: Patient's been advised to stop smoking cigarettes smoking cessation information provided Discharge Disposition: HOME SELF-CARE
--- NOTE | 2016-06-10 19:08 | P.PN ---
Subjective Principal diagnosis: Abdominal pain Very pleasant 40-year-old female with a 48 hour history of progressive abdominal pain. She has a history of some prior difficulties with gastritis and patient was concerned she was having these type of symptoms. However after work or abdominal pain markedly increased she felt nauseated but did not have emesis. She does he presented to the emergency center. There should evidence of fever and leukocytosis. Imaging studies reveal evidence of acute appendicitis. The patient consequently was taken to the operating room where laparoscopic appendectomy as well as lysis of adhesions occurred. Postoperatively patient has had fever and leukocytosis , now feeling considerably better. Looking for discharge home Objective - Vital Signs Vital signs: Vital Signs Temp 98.7 F 06/10/16 07:00 Pulse 80 06/10/16 08:00 Resp 16 06/10/16 08:00 BP 119/57 06/10/16 07:00 Pulse Ox 97 06/10/16 07:00 Intake & Output 06/09/16 06/10/16 06/10/16 18:59 06:59 18:59 Intake Total 960 1010 Output Total 150 150 Balance 960 -150 860 Weight 86.183 kg Intake: IV 600 Dextrose 5%-0.45% NaCl 1, 600 000 ml @ 100 mls/hr IV . Q10H [facility] Rx#:[id number] Intake, IV Titration 50 Amount Piperacillin-Tazobactam 3 50 .375 gm In Dextrose/Water 1 50ml.bag @ 12.5 mls/hr IVPB Q8HR [facility] Rx#: [id number] Oral 960 360 Output: Urine 150 150 Other: Voiding Method Toilet Toilet Toilet # Voids 2 1 1 # Bowel Movements 1 1 - Exam Pleasant 40-year-old woman not in distress HEENT: Anicteric conjunctiva are pink and moist nasal mucosa grossly intact without significant lesions, there is no thrush. Neck: The neck is supple without significant lymphadenopathy or thyromegaly. Lungs: Good bilateral air entry without significant crackles or wheezing. There is no significant bronchial sounds. There is no egophony or dullness. Heart: Regular rate and rhythm with an audible S1-S2, no S3 no S4. There is no significant murmur click or rub, PMI was nondisplaced. Abdomen: Few bowel sounds are noted. The trochanter sites are healing well. She still has tenderness in the right lower quadrant. No guarding or rebound. No epigastric tenderness. Extremities: The upper extremities have excellent pulses they are symmetric, no significant petechiae or telangiectasia. No splinter hemorrhages were noted. The lower extremities are free from significant edema. The peripheral pulses were 2+ and symmetric. Neuro: Awake alert oriented to person place and time. There are no acute new gross focal sensory motor deficits. - Labs CBC & Chem 7: 06/10/16 06:26 06/10/16 06:26 Labs: Abnormal Lab Results - Last 24 Hours (Table) 06/10/16 06/10/16 Range/Units 06: 06:26 RBC 3.65 L (3.80-5.40) m/uL Hgb 10.7 L (11.4-16.0) gm/dL Hct 32.4 L (34.0-46.0) % Chloride 111 H (98-107) mmol/L BUN 5 L (7-17) mg/dL Glucose 110 H (74-99) mg/dL Calcium 8.3 L (8.4-10.2) mg/dL Total Protein 5.8 L (6.3-8.2) g/dL Albumin 2.8 L (3.5-5.0) g/dL Microbiology - Last 24 Hours (Table) 06/09/16 12:31 Urine Culture - Final Urine,Clean Catch 06/08/16 10:51 Gram Stain - Final Abdomen Wound Culture - Final Escherichia coli 06/08/16 20:32 Blood Culture - Preliminary Blood No Growth after 24 hours 06/08/16 20:15 Blood Culture - Preliminary Blood No Growth after 24 hours Laboratory Results WBC 5.8 k/uL (3.8-10.6) 06/10/16 06:26 RBC 3.65 m/uL (3.80-5.40) L 06/10/16 06:26 Hgb 10.7 gm/dL (11.4-16.0) L 06/10/16 06:26 Hct 32.4 % (34.0-46.0) L 06/10/16 06:26 MCV 88.8 fL (80.0-100.0) 06/10/16 06:26 MCH 29.3 pg (25.0-35.0) 06/10/16 06:26 MCHC 33.0 g/dL (31.0-37.0) 06/10/16 06:26 RDW 12.7 % (11.5-15.5) 06/10/16 06:26 Plt Count 169 k/uL (150-450) 06/10/16 06:26 Neutrophils % 58 % 06/10/16 06:26 Lymphocytes % 32 % 06/10/16 06:26 Monocytes % 6 % 06/10/16 06:26 Eosinophils % 2 % 06/10/16 06:26 Basophils % 0 % 06/10/16 06:26 Neutrophils # 3.3 k/uL (1.3-7.7) 06/10/16 06:26 Lymphocytes # 1.9 k/uL (1.0-4.8) 06/10/16 06:26 Monocytes # 0.3 k/uL (0-1.0) 06/10/16 06:26 Eosinophils # 0.1 k/uL (0-0.7) 06/10/16 06:26 Basophils # 0.0 k/uL (0-0.2) 06/10/16 06:26 Sodium 141 mmol/L (137-145) 06/10/16 06:26 Potassium 4.1 mmol/L (3.5-5.1) 06/10/16 06:26 Chloride 111 mmol/L (98-107) H 06/10/16 06:26 Carbon Dioxide 23 mmol/L (22-30) 06/10/16 06:26 Anion Gap 7 mmol/L 06/10/16 06:26 BUN 5 mg/dL (7-17) L 06/10/16 06:26 Creatinine 0.76 mg/dL (0.52-1.04) 06/10/16 06:26 Est GFR (MDRD) Af Amer >60 (>60 ml/min/1.73 sqM) 06/10/16 06:26 Est GFR (MDRD) Non-Af >60 (>60 ml/min/1.73 sqM) 06/10/16 06:26 Glucose 110 mg/dL (74-99) H 06/10/16 06:26 Plasma Lactic Acid Buster 1.0 mmol/L (0.7-2.0) 06/08/16 01:05 Calcium 8.3 mg/dL (8.4-10.2) L 06/10/16 06:26 Total Bilirubin 0.5 mg/dL (0.2-1.3) 06/10/16 06:26 AST 21 U/L (14-36) 06/10/16 06:26 ALT 27 U/L (9-52) 06/10/16 06:26 Alkaline Phosphatase 68 U/L (38-126) 06/10/16 06:26 Total Protein 5.8 g/dL (6.3-8.2) L 06/10/16 06:26 Albumin 2.8 g/dL (3.5-5.0) L 06/10/16 06:26 Amylase <30 U/L (30-110) L 06/08/16 01:05 Lipase 66 U/L (23-300) 06/08/16 01:05 TSH 0.762 mIU/L (0.465-4.680) 06/09/16 07:23 Free T4 1.91 ng/dL (0.78-2.19) 06/09/16 07:23 Free T3 pg/mL 3.3 pg/ml (2.8-5.3) 06/09/16 07:23 Urine Color Light Yellow 06/09/16 12:31 Urine Appearance Clear (Clear) 06/09/16 12:31 Urine pH 6.5 (5.0-8.0) 06/09/16 12:31 Ur Specific [place] 1.006 (1.001-1.035) 06/09/16 12:31 Urine Protein Negative (Negative) 06/09/16 12:31 Urine Glucose (UA) Negative (Negative) 06/09/16 12:31 Urine Ketones Negative (Negative) 06/09/16 12:31 Urine Blood Trace (Negative) H 06/09/16 12:31 Urine Nitrate Negative (Negative) 06/09/16 12:31 Urine Bilirubin Negative (Negative) 06/09/16 12:31 Urine Urobilinogen <2.0 mg/dL (<2.0) 06/09/16 12:31 Ur Leukocyte Esterase Negative (Negative) 06/09/16 12:31 Urine RBC 2 /hpf (0-5) 06/09/16 12:31 Urine WBC 2 /hpf (0-5) 06/09/16 12:31 Ur Squamous Epith Cells <1 /hpf (0-4) 06/09/16 12:31 Urine Bacteria Rare /hpf (None) H 06/09/16 12:31 Urine Mucus Rare /hpf (None) H 06/08/16 01:25 Urine HCG, Qual Not Detected (Not Detectd) 06/08/16 01:25 Assessment and Plan (1) Acute appendicitis Narrative/Plan: 40-year-old woman with a history of abdominal pain with of evidence of an acute appendicitis and subsequent placement taken the operating room for her laparoscopic appendectomy. Culture reveals evidence of Ecoli and augmentin given for oral completion therapy, discharge to home. She understands the surgeon is in charge of her ability to return to work which she is very concerned about because of her sole parent status. She does have many family members that will help. And suggest that she talks to the father of the children for help during this acute time frame. Status: Acute
== END 2016-06-10 13:42 | disposition home or self-care (01) | DRG 343 ==
LOC: EC 00:42 → 3SUR 02:51
PROVIDERS: ADMIT Surgery; ATTEND Surgery
PROC: 0DTJ4ZZ Resection of Appendix, Percutaneous Endoscopic Approach (ICD-10-PCS; principal; 2016-06-08 09:00)
DX: K35.80 Unspecified acute appendicitis (principal); F17.200 Nicotine dependence, unspecified, uncomplicated; K66.0 Peritoneal adhesions (postprocedural) (postinfection); Z88.6 Allergy status to analgesic agent; Z88.8 Allergy status to other drugs, medicaments and biological substances
CPT/HCPCS: 36415; 74177; 80053; 81001; 81025; 82150; 83605; 83690; 84439; 84443; 84481; 85025; 87040; 87070; 87075; 87077; 87086; 87186; 87205; 88304; 96361; 96365; 96375; 99285

== ENCOUNTER 2020-07-25 09:32 | Emergency (ER) | payer OTHER ==
[2020-07-25 10:29] LABS: Basophils % (A) 0 %; Eosinophils # (A) 0.2 k/uL (0-0.7); Eosinophils % (A) 2 %; HGB 13.8 gm/dL (11.4-16.0); Lymphocytes # (A) 1.8 k/uL (1.0-4.8); Lymphocytes % (A) 18 %; MCH 30.7 pg (25.0-35.0); MCHC 34.6 g/dL (31.0-37.0); MCV 88.6 fL (80.0-100.0); Mean Platelet Volume 6.5; Monocytes # (A) 0.6 k/uL (0-1.0); Monocytes % (A) 6 %; Neutrophils # (A) 7.3 k/uL (1.3-7.7); Neutrophils % (A) 73 %; Platelet Count 221 k/uL (150-450); RBC 4.51 m/uL (3.80-5.40); RDW 13.6 % (11.5-15.5); WBC 10.1 k/uL (3.8-10.6)
[2020-07-25 10:42] LABS: ALT 14 U/L (4-34); AST 21 U/L (14-36); African American GFR (CKD) >90 (>60 ml/min/1.73 sqM); Albumin 4.1 g/dL (3.5-5.0); Alkaline Phosphatase 88 U/L (38-126); Anion Gap 8 mmol/L; Blood Urea Nitrogen 16 mg/dL (7-17); Calcium 9.5 mg/dL (8.4-10.2); Carbon Dioxide 23 mmol/L (22-30); Chloride 107 mmol/L (98-107); Glucose 89 mg/dL (74-99); Non-African American GFR(CKD) >90 (>60 ml/min/1.73 sqM); Potassium 4.1 mmol/L (3.5-5.1); Sodium 138 mmol/L (137-145); Total Bilirubin 0.5 mg/dL (0.2-1.3); Total Protein 7.2 g/dL (6.3-8.2)
[2020-07-25 10:44] LABS: INR 0.9 (<1.2); Prothrombin Time 9.4 sec (9.0-12.0)
--- NOTE | 2020-07-25 10:44 | US ---
EXAMINATION TYPE: US venous doppler duplex LE RT DATE OF EXAM: 07/25/2020 10:26 AM COMPARISON: NONE CLINICAL HISTORY: calf pain. Right calf pain SIDE PERFORMED: Right TECHNIQUE: The lower extremity deep venous system is examined utilizing real time linear array sonog paulino with graded compression, doppler sonography and color-flow sonography. VESSELS IMAGED: Common Femoral Vein Deep Femoral Vein Greater Saphenous Vein * Femoral Vein Popliteal Vein Small Saphenous Vein * Proximal Calf Veins (* superficial vessels) Right Leg: Negative for DVT Grayscale, color doppler, spectral doppler imaging performed of the deep veins of the right lower ext remity. There is normal flow, compressibility, vascular waveforms. IMPRESSION: No ultrasound evidence for acute DVT in the right lower extremity.
[2020-07-25 10:45] LABS: Partial Thromboplastin Time 20.9 sec (22.0-30.0)
--- NOTE | 2020-07-25 11:09 | XR ---
Right leg HISTORY: Leg pain 2 views of the right leg Correlation to ultrasound dated 07/25/2020 Bone mineralization, joint spaces and alignment are maintained. No fracture or dislocation. No eviden t soft tissue mass. IMPRESSION: Normal right leg.
--- NOTE | 2020-07-25 11:14 | ED ---
Lower Extremity Injury HPI - General Chief Complaint: Extremity Injury, Lower Stated Complaint: R leg pain Time Seen by Provider: 07/25/20 10:00 Source: patient Mode of arrival: ambulatory Limitations: no limitations - History of Present Illness Initial Comments: 44-year-old female presents emergency department today for chief complaint of right calf pain. Patient states her right calf feels tight. She states she has had a pain and for the past 2-3 days. Patient states she recently drove home from [place]. She states she is on control and is a smoker. She denies a chest pain shortness of breath she denies any redness or notable swelling. Patient has no history of DVT or pulmonary embolism. She denies any recent surgeries or immobilization. She denies active cancer. Upon arrival patient appears well and nontoxic distress - Related Data Home Medications Medication Instructions Recorded Confirmed Etonogestrel/Ethinyl Estradiol 1 ring VAGINAL DIRECTED 06/08/16 07/25/20 [Nuvaring Vaginal Ring] Cetirizine HCl 10 mg PO DAILY 07/25/20 07/25/20 Fluticasone Nasal [place] [Flonase 2 spr EA NOSTRIL BID PRN 07/25/20 07/25/20 Nasal [place]] Phentermine HCl [Adipex-P] 18.75 mg PO DAILY 07/25/20 07/25/20 Allergies Allergy/AdvReac Type Severity Reaction Status Date / Time propoxyphene Allergy Itching Verified 07/25/20 10:55 [From Brittany] Review of Systems ROS Statement: Those systems with pertinent positive or pertinent negative responses have been documented in the HPI. ROS Other: All systems not noted in ROS Statement are negative. Past Medical History Past Medical History: No Reported History Additional Past Medical History / Comment(s): seasonal allergies History of Any Multi-Drug Resistant Organisms: None Reported Past Surgical History: Appendectomy, Section Additional Past Surgical History / Comment(s): 2 secions Additional Past Anesthesia/Blood Transfusion Reaction / Comment(s): no history of blood transfuion.drop in BP with ceserean section Past Psychological History: No Psychological Hx Reported Smoking Status: Current every day smoker Past Alcohol Use History: Rare Past Drug Use History: None Reported - Past Family History Mother Family Medical History: No Reported History General Exam - General Exam Comments Initial Comments: General: The patient is awake and alert, in no distress Eye: +3 mm pupils are equal, round and reactive to light, extra-ocular movements are intact. No nystagmus. There is normal conjunctiva bilaterally. No signs of icterus. Gastrointestinal: Soft, non-distended, non-tender abdomen without masses or organomegaly noted. There is no rebound or guarding present. Musculoskeletal: Pain to palpation of the right posterior calf. no bruising. Normal ROM, no tenderness. Strength 5/5. Sensation intact. PT, DP pulses equal bilaterally 2+. Neurological: A&O x 3. CN II-XII intact grossly, There are no obvious motor or sensory deficits. Coordination appears grossly intact. Speech is normal. Skin: Skin is warm and dry and no rashes or lesions are noted. NO LE edema nor calf swelling noted. appear equal no redness. Psychiatric: Cooperative, appropriate mood & affect, normal judgment. Limitations: no limitations Course Vital Signs 07/25/20 07/25/20 09:40 11:40 Temperature 98.2 F 97.2 F L Pulse Rate 99 78 Respiratory 18 16 Rate Blood Pressure 143/88 129/85 O2 Sat by Pulse 100 97 Oximetry Medical Decision Making - Medical Decision Making Skin exam unremarkable no cellulitis. Labs stable. US (-). Recommend repeat in 1 week if symptoms persist, earlier if symptoms worsen. Pt xr (-). She is neur ovascularly intact at this time feel she is stable for discharge and outpatient follow-up - Lab Data Result diagrams: 07/25/20 10:20 07/25/20 10:20 Lab Results 07/25/20 07/25/20 07/25/20 Range/Units 10:20 10:20 10:20 WBC 10.1 (3.8-10.6) k/uL RBC 4.51 (3.80-5.40) m/uL Hgb 13.8 (11.4-16.0) gm/dL Hct 40.0 (34.0-46.0) % MCV 88.6 (80.0-100.0) fL MCH 30.7 (25.0-35.0) pg MCHC 34.6 (31.0-37.0) g/dL RDW 13.6 (11.5-15.5) % Plt Count 221 (150-450) k/uL MPV 6.5 Neutrophils % 73 % Lymphocytes % 18 % Monocytes % 6 % Eosinophils % 2 % Basophils % 0 % Neutrophils # 7.3 (1.3-7.7) k/uL Lymphocytes # 1.8 (1.0-4.8) k/uL Monocytes # 0.6 (0-1.0) k/uL Eosinophils # 0.2 (0-0.7) k/uL Basophils # 0.0 (0-0.2) k/uL PT 9.4 (9.0-12.0) sec INR 0.9 (<1.2) APTT 20.9 L (22.0-30.0) sec Sodium 138 (137-145) mmol/L Potassium 4.1 (3.5-5.1) mmol/L Chloride 107 (98-107) mmol/L Carbon Dioxide 23 (22-30) mmol/L Anion Gap 8 mmol/L BUN 16 (7-17) mg/dL Creatinine 0.78 (0.52-1.04) mg/dL Est GFR (CKD-EPI)AfAm >90 (>60 ml/min/1.73 sqM) Est GFR (CKD-EPI)NonAf >90 (>60 ml/min/1.73 sqM) Glucose 89 (74-99) mg/dL Calcium 9.5 (8.4-10.2) mg/dL Total Bilirubin 0.5 (0.2-1.3) mg/dL AST 21 (14-36) U/L ALT 14 (4-34) U/L Alkaline Phosphatase 88 (38-126) U/L Total Protein 7.2 (6.3-8.2) g/dL Albumin 4.1 (3.5-5.0) g/dL Disposition Clinical Impression: Right calf pain Disposition: HOME SELF-CARE Condition: Good Additional Instructions: Please use medication as discussed. Please follow-up with family doctor in the next 2 days, if symptoms persist please return to the ER for repeat US or have PCP order outpatient study, as deemed fit. Please return to emergency room if the symptoms increase or worsen or for any other concerns. Is patient prescribed a controlled substance at d/c from ED?: No Referrals: Hans Bryant MD [Primary Care Provider] - 1-2 days Time of Disposition: 11:14
[2020-07-25 11:41] VITALS: BP 129/85; PULSE 78; RESP 16; TEMP 97.2
== END 2020-07-25 11:40 | disposition home or self-care (01) ==
LOC: EC 09:32
DX: M79.661 Pain in right lower leg (principal); F17.200 Nicotine dependence, unspecified, uncomplicated
CPT/HCPCS: 36415; 80053; 85025; 85610; 85730; 99284

== ENCOUNTER 2020-11-12 17:14 | Emergency (ER) | payer OTHER ==
[2020-11-12] MEDS ORDERED: LIDOCAINE/EPINEPHR/TETRACAINE 5 ML BOTTLE TOPICAL ONE (18:24)
--- NOTE | 2020-11-12 18:43 | ED ---
Wound/Laceration HPI - General Chief Complaint: Wound/Laceration Stated Complaint: facial injury, lip lac Time Seen by Provider: 11/12/20 17:59 Source: patient Mode of arrival: ambulatory Limitations: no limitations - History of Present Illness Initial Comments: Patient is a 44-year-old female presenting to the emergency Department with complaints of a laceration to her top lip that happened about 3 hours prior to arrival. She states she just returned from [facility], was trying to fix something on her trailer, using a hatchet, when she pulled back hitting the top of her lip, causing a laceration. She denies any loose teeth, no loss of consciousness, she has no headache. She states her pain is very minimal at this time. Bleeding is controlled. She states she went to an urgent care and they sent her to ER for repair of laceration. Her tetanus is up-to-date, she is no active bleeding, she is not on blood thinners. There are no further complaints. - Related Data Home Medications Medication Instructions Recorded Confirmed Etonogestrel/Ethinyl Estradiol 1 ring VAGINAL DIRECTED 06/08/16 11/12/20 [Nuvaring Vaginal Ring] Amino Acids 700 mg PO DAILY 11/12/20 11/12/20 Multivitamins, Thera [Multivitamin 1 tab PO DAILY 11/12/20 11/12/20 (formulary)] Allergies Allergy/AdvReac Type Severity Reaction Status Date / Time propoxyphene Allergy Itching Verified 11/12/20 19:18 [From Dar-Darren] Review of Systems ROS Statement: Those systems with pertinent positive or pertinent negative responses have been documented in the HPI. ROS Other: All systems not noted in ROS Statement are negative. Past Medical History Past Medical History: No Reported History Additional Past Medical History / Comment(s): seasonal allergies History of Any Multi-Drug Resistant Organisms: None Reported Past Surgical History: Appendectomy, Section Additional Past Surgical History / Comment(s): 2 secions Additional Past Anesthesia/Blood Transfusion Reaction / Comment(s): no history of blood transfuion.drop in BP with ceserean section Past Psychological History: No Psychological Hx Reported Smoking Status: Current every day smoker Past Alcohol Use History: Rare Past Drug Use History: None Reported - Past Family History Mother Family Medical History: No Reported History General Exam - General Exam Comments Initial Comments: GENERAL: Patient is well-developed and well-nourished. Patient is nontoxic and in no acute distress. HEAD: Atraumatic, normocephalic. No hematomas. EYES: Pupils equal round and reactive to light, extraocular movements intact, sclera anicteric, conjunctiva are normal. Eyelids were unremarkable. ENT: Moist mucous membranes. NECK: Normal range of motion, supple without lymphadenopathy or JVD. LUNGS: Unlabored respirations. Breath sounds clear to auscultation bilaterally and equal. No wheezes rales or rhonchi. HEART: Regular rate and rhythm without murmurs, rubs or gallops. MUSCULOSKELETAL: Normal extremities with adequate strength and normal range of motion, no pitting or edema. No clubbing or cyanosis. NEUROLOGICAL: Patient is alert and oriented x 3. Motor and sensory are also intact. Cranial nerves II through XII grossly intact. Symmetrical smile. Normal speech, normal gait. PSYCH: Normal mood, normal affect. SKIN: Warm, Dry, normal turgor, no rashes. There is a 0.5 cm vertical laceration on the top lip in the middle. It does cross the vermilion border. Limitations: no limitations Course Vital Signs 11/12/20 11/12/20 17:54 19:39 Temperature 98.3 F 98.4 F Pulse Rate 81 77 Respiratory 16 22 Rate Blood Pressure 150/95 135/75 O2 Sat by Pulse 98 97 Oximetry Procedures - Laceration Laceration #1 Consent Obtained: verbal consent Indication: laceration Site: lip (Top lip) Size (cm): 0 (0.5cm) Description: linear, involves jana border Depth: simple, single layer Size of Sutures: 6-0 Number of Sutures: 2 Technique: simple, interrupted Additional Comments: Topical LET was applied prior to procedure. Medical Decision Making - Medical Decision Making Patient is a 44-year-old female here with a 0.5 cm laceration to the top lip. Bleeding is controlled, she is not on blood thinners. Her tetanus is up-to-date. I applied topical LET the patient's wound, it was closed with 2, 6- 0 sutures. Tolerated procedure well. The sutures will be removed in 7-10 days. She is agreeable this plan of care and is stable for discharge. Case discussed with Dr. Schmitt. Disposition Clinical Impression: Laceration of vermilion border of upper lip Disposition: HOME SELF-CARE Condition: Stable Instructions (If sedation given, give patient instructions): Care For Your Stitches (ED) Additional Instructions: Please return to the Emergency Department if symptoms worsen or any other concerns. Keep area clean and dry. Apply topical antibiotic for the first 1-2 days. Stitches need to be removed in approximately 7 days. Is patient prescribed a controlled substance at d/c from ED?: No Referrals: Hans Bryant MD [Primary Care Provider] - 1-2 days Time of Disposition: 19:35
[2020-11-12 19:40] VITALS: BP 135/75; PULSE 77; RESP 22; TEMP 98.4
== END 2020-11-12 19:40 | disposition home or self-care (01) ==
LOC: EC 17:14
DX: S01.511A Laceration without foreign body of lip, initial encounter (principal); F17.200 Nicotine dependence, unspecified, uncomplicated; W22.8XXA Striking against or struck by other objects, initial encounter
CPT/HCPCS: 40650; 99282

== ENCOUNTER → 2023-04-14 | Outpatient (CLI) | payer OTHER ==
[2023-04-14 19:59] LABS: Basophils # (A) 0.03 X 10*3/uL (0.00-0.10); Basophils % (A) 0.3 %; Eosinophils % (A) 2.2 %; HCT 39.2 % (37.2-46.3); HGB 12.7 g/dL (12.0-15.0); Lymphocytes # (A) 2.01 X 10*3/uL (0.90-5.00); Lymphocytes % (A) 21.9 %; MCHC 32.4 g/dL (32.0-37.0); MCV 89.5 FL (80.0-97.0); Mean Platelet Volume 9.1 FL (9.5-12.2); Monocytes # (A) 0.53 X 10*3/uL (0.20-1.00); Monocytes % (A) 5.8 %; NRBC Per 100 WBC 0 X 10*3/uL (0.00-0.01); Neutrophils # (A) 6.37 X 10*3/uL (1.80-7.70); Neutrophils % (A) 69.6 %; Platelet Count 288 X 10*3/uL (140-440); RBC 4.38 X 10*6/uL (4.10-5.20); RDW 12.8 % (11.5-14.5); WBC 9.16 X 10*3/uL (4.50-10.00)
[2023-04-14 20:32] LABS: Blood Urea Nitrogen 11.4 mg/dL (9.0-27.0); Glucose 105 mg/dL (70-110)
[2023-04-14 20:33] LABS: Carbon Dioxide 22.7 mmol/L (21.6-31.8); Chloride 105 mmol/L (96-109); Sodium 140 mmol/L (135-145); T4, Free (Free Thyroxine) 1.22 ng/dL (0.80-1.80)
== END | disposition home or self-care (01) ==
LOC: LABPAT 13:11
PROVIDERS: ATTEND Obstetrics & Gynecology
DX: Z01.812 Encounter for preprocedural laboratory examination (principal); N92.1 Excessive and frequent menstruation with irregular cycle; N94.10 Unspecified dyspareunia; N93.8 Other specified abnormal uterine and vaginal bleeding; R10.2 Pelvic and perineal pain; R63.5 Abnormal weight gain
CPT/HCPCS: 36415; 80051; 82565; 82947; 84439; 84443; 84520; 85025; 86850; 86900; 86901

== ENCOUNTER → 2023-04-17 | Outpatient (CLI) | payer OTHER | END | disposition home or self-care (01) | LOC: LABWHC1 11:36 | PROVIDERS: ATTEND Obstetrics & Gynecology | DX: Z01.812 Encounter for preprocedural laboratory examination (principal); N92.1 Excessive and frequent menstruation with irregular cycle; N94.10 Unspecified dyspareunia; N93.8 Other specified abnormal uterine and vaginal bleeding; R63.5 Abnormal weight gain; R10.2 Pelvic and perineal pain | CPT/HCPCS: 87077; 87086; 87186 ==

== ENCOUNTER 2023-04-20 07:59 | Day surgery (SDC) | payer OTHER ==
[2023-04-16 10:15] VITALS: BMI 34.1
--- NOTE | 2023-04-16 23:38 | HP ---
HISTORY AND PHYSICAL DATE OF ANTICIPATED SURGERY: 04/20/2023 HISTORY OF PRESENT ILLNESS: The patient is a 47-year-old, 2, para 2-0-0-2 who presents to the office with a roughly 18-month history of relatively constant pelvic pain. She additionally complains of significant menometrorrhagia. She had excellent cycle control and management of the pelvic pain with a branded NuvaRing but pharmacy began substituting a generic for it which led to increasing problems with both cycle control and pain. Petitioning the insurance company failed to allow it to be covered. We have tried several other medical approaches including a Mirena IUD with no improvement in any of the symptoms. Initially, we added an oral contraceptive pill on top of the Mirena IUD, which helped, but this has failed now as well. She is continuing to miss work on a regular basis secondary to this and also complains of significant dyspareunia. She has requested definitive therapy. Given her history of 2 previous sections, she is primarily only a good candidate for robotic approach. PAST MEDICAL HISTORY: Significant for asthma and she also had some impaired gallbladder findings. SURGICAL HISTORY: Significant for section x2, and otherwise upper endoscopy. There has apparently been no anesthetic concerns. OBSTETRICAL HISTORY: 2, para 2-0-0-2 with 2 term deliveries without complications. Method of contraception has been as noted in history of present illness with initially NuvaRing with an IUD and now will be hysterectomy. GYNECOLOGIC HISTORY: Unremarkable except as noted in history of present illness. There is no history of any infections to include STDs. FAMILY HISTORY: Noncontributory. SOCIAL HISTORY: The patient is and works as a sergeant for the [employer]. She is an occasional smoker of less than 1 pack per day and otherwise denies any alcohol or any other social concerns. CURRENT MEDICATIONS: Adipex-P 37.5 mg daily. ALLERGIES: No known drug allergies. REVIEW OF SYSTEMS: Confined to history of present illness. PHYSICAL EXAMINATION: VITAL SIGNS: Stable. The patient is afebrile. GENERAL: This is a well-developed, well-nourished white female, in no acute distress. HEART: Has a regular rhythm and rate without murmur. LUNGS: Clear to auscultation bilaterally in all perry. ABDOMEN: Nondistended, has normoactive bowel sounds, soft, nontender, without any palpable masses, hepatosplenomegaly, or hernias. EXTREMITIES: Without any cyanosis, clubbing, or edema and are nontender to palpation bilaterally. PELVIS: Demonstrates normal external genitalia and BUS with normal vaginal mucosa and cervix. There is no cervical motion tenderness. Uterus is 4 to 5 weeks in size, slightly retroverted, mobile, nontender, normal in shape. The adnexa are normal and nontender without mass bilaterally. ASSESSMENT AND PLAN: 1. Chronic pelvic pain. 2. Menometrorrhagia. 3. Dyspareunia. As the patient has failed all attempts at medical management, and the only device that helps was a branded NuvaRing which will not be covered by insurance, the patient has elected to proceed with definitive therapy. She has been scheduled for da Saige robotically assisted laparoscopic hysterectomy with bilateral salpingectomy and diagnostic cystoscopy. The risks and complications of these procedures have been thoroughly discussed including risk for bleeding, bleeding requiring transfusion, infection, and injury to local structures to specifically include the bowel, bladder, and ureters. We also discussed the specific risks of her rather that are unique to da Saige surgery including thermal injury as well as vaginal cuff dehiscence. She has understood all this and has agreed to proceed. We are scheduled for the procedure as outlined above on the morning of April 20, 2023. MMODL / IJN: [id number] /
[~2023-04-20 07:59] MED LIST: DEXAMETHASONE SOD PHOSPHATE 4 MG/ML 1 ML VIAL IV ONE; HYDROmorphone 0.5 MG/0.5 ML SYRINGE IVP PRN; LACTATED RINGERS 1,000 ML IV SCH; LIDOCAINE 1% (10MG/ML) FOR IV START INTRADERMA PRN; ONDANSETRON 4 MG/2 ML VIAL IVP ONE; SCOPOLAMINE 1 MG/72 HR PATCH TRANSDERM ONE; droPERidol 5 MG/2 ML VIAL IVP PRN
[2023-04-20] MEDS ORDERED: DEXAMETHASONE SOD PHOSPHATE 4 MG/ML 1 ML VIAL IVP ONE (08:48)
[2023-04-20] MEDS ORDERED: ONDANSETRON 4 MG/2 ML VIAL IVP ONE (08:48)
[2023-04-20] MEDS ORDERED: MIDAZOLAM 2 MG/2 ML VIAL IVP ONE (08:51)
[2023-04-20] MEDS ORDERED: fentaNYL (PF) 50 MCG/1 ML VIAL IVP ONE (08:52)
--- NOTE | 2023-04-20 09:07 | P.ANPRN ---
Procedure Note - Anesthesia - Epidural/Spinal Spinal Time Out Performed: Yes Date of Procedure: 04/20/23 Procedure Start Time: 08:50 Procedure Stop Time: 08:55 Location of Patient: PreOp Indication: Acute Post-Operative Pain, Analgesia, Requested by Surgeon Sedation Type: Sedate with meaningful contact maintained Preparation: Sterile Prep Position: Sitting Catheter: None Needle Guage: 22 Injectate: Duramorph 0.3mg +[id number] mics Blood Aspirated: No Pain Paresthesia on Injection Noted: No Events: Uneventful and Well Tolerated
[2023-04-20] MEDS ORDERED: ROCURONIUM 10 MG/ML (5 ML VIAL) IV ONE (09:33)
[2023-04-20] MEDS ORDERED: NEOSTIGMINE 1 MG/ML 10 ML VIAL ONE (09:33)
[2023-04-20] MEDS ORDERED: LIDOCAINE 1% INJ 10MG/ML (20 ML MDV) ONE (09:33)
[2023-04-20] MEDS ORDERED: PROPOFOL 10 MG/ML 20 ML VIAL IV ONE (09:33)
[2023-04-20] MEDS ORDERED: HYDROmorphone (PF) 1 MG/ML ONE (09:33)
[2023-04-20] MEDS ORDERED: diphenhydrAMINE 50 MG/ML 1 ML VIAL ONE (09:33)
[2023-04-20] MEDS ORDERED: MORPHINE SULFATE (PF) 0.3 MG/0.3 ML SYR ONE (09:33)
[2023-04-20] MEDS ORDERED: GLYCOPYRROLATE 0.2 MG/ML 2 ML VIAL ONE (09:33)
[2023-04-20] MEDS ORDERED: fentaNYL (PF) 50 MCG/ML 2 ML AMP ONE (09:33)
[2023-04-20] MEDS ORDERED: MIDAZOLAM 2 MG/2 ML VIAL ONE (09:33)
[2023-04-20] MEDS ORDERED: SUCCINYLCHOLINE CHLORIDE 200 MG/10 ML VIAL IV ONE (09:33)
[2023-04-20] MEDS ORDERED: BUPIVACAINE (PF) 0.25% 30 ML VIAL SQ ONE ×2 (10:33)
[2023-04-20] MEDS ORDERED: LACTATED RINGERS 1,000 ML IV ONE (11:29)
[2023-04-20] MEDS ORDERED: IBUPROFEN 600 MG TAB PO PRN (11:44)
[2023-04-20] MEDS ORDERED: ONDANSETRON 4 MG/2 ML VIAL IVP PRN (11:44)
[2023-04-20] MEDS ORDERED: METOCLOPRAMIDE 5 MG/ML 2 ML VIAL IVP PRN (11:44)
[2023-04-20] MEDS ORDERED: KETOROLAC 15 MG/ML 1 ML VIAL IVP PRN (11:44)
[2023-04-20] MEDS ORDERED: Acetaminophen-Codeine 300-30mg TAB PO PRN ×2 (11:44)
[2023-04-20] MEDS ORDERED: SIMETHICONE 80 MG CHEWABLE PO PRN (11:44)
[2023-04-20] MEDS ORDERED: LACTATED RINGERS 1,000 ML IV SCH (11:45)
--- NOTE | 2023-04-20 12:00 | P.OP ---
Date of Procedure: 04/20/23 Preoperative Diagnosis: #1. Menometrorrhagia #2. Severe dysmenorrhea Postoperative Diagnosis: Same Procedure(s) Performed: #1. Laparoscopic lysis of adhesions #2. Da Saige robotically assisted laparoscopic hysterectomy with bilateral salpingectomy #3. Diagnostic cystoscopy Anesthesia: NAREN Surgeon: Tad Knott Photo Booth Operator #1: Josie Bonilla Estimated Blood Loss (ml): 100 IV fluids (ml): 1,000 Urine output (ml): 250 Pathology: other (Uterus and bilateral fallopian tubes) Condition: stable Disposition: PACU Operative Findings: See dictated history and physical for findings leading to procedure. Intraoperatively, the patient was found to have fairly significant omental adhesions primarily confined to the left side of the abdomen from approximately the umbilicus to the pelvis. These were taken down sharply with a LigaSure tool and without difficulty. There was a moderate amount of scarring from her previous sections was some distortion of the anatomy primarily of the left tube, ovary, and round ligament as well as the entire bladder flap. The ovaries were otherwise normal and left intact. There was no other pathology noted in the pelvis. Following the procedure, the urine which had been clear throughout was noted to still be clear. The dome of the bladder was undamaged from a cystoscopic and laparoscopic perspective and the bilateral ureteral hallux were seen peristalsing with jets noted. Description of Procedure: The patient was prepped and draped in usual fashion after general endotracheal anesthesia was established by the anesthesiologist. A weighted speculum was placed in the anterior lip the cervix was grasped with single-tooth tenaculum. Uterus sounded to approximately 10 cm. Serial dilation was carried out to admit a uterine manipulator with a medium cup which was affixed in standard fashion. The bladder was then catheterized and presented to the abdomen. A site was selected in the midline approximately 3-4 cm above the umbilicus where an 8 mm incision was made in the transverse plane. An 8 mm da Saige optical trocar was inserted into the abdominal cavity without difficulty and a pneumoperitoneum infused. The findings were as noted above. As a right lower quadrant was clear, a site was selected approximately 10-12 cm outside of the umbilicus and 4-5 cm inferior approximately equal to the umbilicus where an 8 mm incision was made in the transverse plane. A slight insertion of an 8 mm da Saige port under direct visualization. Scope was shifted to that port and the extent of the adhesions were noted. The optical port was noted be fairly closely related to the onset of the adhesions. There was an easy place to place a tourist information assistant port in the left upper quadrant approximately 5 cm lateral and 5 cm superior to the optical port. A 10 mm incision was made in the transverse plane allowing insertion of a 10 mm tourist information assistant port under direct visualization. A LigaSure device was then introduced through the tourist information assistant port with the scope in the right lower quadrant in the entirety of the adhesions were taken down as close to the anterior abdominal wall as could be managed. No ongoing bleeding was n oted. The scope was then returned to the standard optical port and a site selected to mirror the right lower quadrant port in the left lower quadrant. An 8 mm da Saige port was placed under direct visualization as noted above. The robot was undocked and the patient and the left arm loaded with the [place] bipolar cautery forceps in the right arm with a monopolar cautery scissors. The findings are as noted above with some irregularities and the anatomy primarily with the left tube, ovary, and round ligament complex as well as the bladder flap which was fairly densely adherent. The right fallopian tube was elevated and the removed from its underlying ovary to the cornea using cautery followed by cut. The utero-ovarian ligament was then cauterized and cut sharply through to the round ligament was also transected at its insertion to the uterus. This allowed the bladder flap to be developed to the midline and the uterine vasculature to be skeletonized. Attention was returned to the left side where similar operations were carried out without significant difficulty. Once the round ligament complex had been removed from the uterine attachment, the uterus became more mobile. The bladder was then further developed and a 4 x 4 introduced the abdomen which was utilized to bluntly sweep the bladder further distally. Urine remained clear throughout. The uterine vasculature bilaterally was cauterized with the [place] bipolar cautery forceps and then cut with the monopolar cautery scissors. Once the vascular pedicles had been cauterized and secured, the vagina was packed with a laparotomy sponge and the vaginal cuff opened sharply using monopolar cautery scissors. The cup was then followed circumferentially around the entire cervix to remove the uterus from its mornings. A manipulating device became loose and a ring forceps was introduced through the vagina to grasp the cervix and the uterus was easily removed through the vagina. The monopolar cautery scissors was replaced with a laparoscopic suturing device and a stitch of 0 Stratafix was passed and the abdomen. This was utilized to close the vaginal cuff from the right angle to the left angle in standard fashion with 2 stitches returning to the midline to further affix it. There was some small bleeding noted on the bladder flap and this was made hemostatic with surgical powder. I then returned from the console to the patient, remove the Bravo catheter and placed a diagnostic hysteroscope. The bladder was filled with sterile water and examination of the bladder from both the laparoscopic and hysteroscopic side demonstrated no evidence of damage. The ureteral hallux were seen peristalsing bilaterally with ureteral jets noted as well. All instrumentation was removed and the catheter replaced. The robot was undocked from the patient and the ports removed after evacuating the pneumoperitoneum through the ports. The incisions were closed with interrupted subcuticular stitches of 4-0 Vicryl followed by half-inch Steri-Strips placed with Mastisol. There were also infused with a total of 10 mL of half percent Marcaine without epinephrine equally divided between the 4 incisions. All spong e, instrument, needle counts were correct. Estimated blood loss for the case was approximate 100 mL. There were no complications. The patient tolerated the procedure well and proceeded to the recovery room in stable condition.
[2023-04-20] MEDS: diphenhydrAMINE 50 MG/ML 1 ML VIAL IVP PRN ×2 (12:14→21:19)
[2023-04-20] MEDS ORDERED: DEXAMETHASONE SOD PHOSPHATE 4 MG/ML 1 ML VIAL IM STA (23:16)
[2023-04-20] MEDS ORDERED: DEXAMETHASONE SOD PHOSPHATE 4 MG/ML 1 ML VIAL IVP STA (23:27)
[2023-04-21 03:03] VITALS: RESP 16
[2023-04-21] MEDS: diphenhydrAMINE 50 MG/ML 1 ML VIAL IVP PRN (03:35)
[2023-04-21 07:10] LABS: Basophils % (A) 0 %; Eosinophils % (A) 0 %; HCT 33.7 % (34.0-46.0); HGB 11.2 gm/dL (11.4-16.0); Lymphocytes # (A) 0.7 k/uL (1.0-4.8); Lymphocytes % (A) 7 %; MCH 29.8 pg (25.0-35.0); MCHC 33.1 g/dL (31.0-37.0); MCV 89.9 fL (80.0-100.0); Mean Platelet Volume 7.5; Monocytes # (A) 0.5 k/uL (0-1.0); Monocytes % (A) 5 %; Neutrophils # (A) 9.4 k/uL (1.3-7.7); Neutrophils % (A) 88 %; Platelet Count 221 k/uL (150-450); RBC 3.75 m/uL (3.80-5.40); RDW 13.2 % (11.5-15.5); WBC 10.7 k/uL (3.8-10.6)
[2023-04-21 08:31] VITALS: BP 130/72; PULSE 93; TEMP 98.3
--- NOTE | 2023-04-21 08:53 | P.DS ---
Providers Expected date of discharge: 04/21/23 Attending physician: Tad Knott Primary care physician: Stated None - Discharge Diagnosis(es) (1) Dysmenorrhea Current Visit: Yes Status: Acute (2) Menometrorrhagia Current Visit: Yes Status: Acute Hospital Course: The patient is a 47-year-old 2 para 2001 who presented to the office with a roughly 18 month history of relatively constant pelvic pain with severe dysmenorrhea and significant menometrorrhagia. She had had excellent cycle control using branded maneuvering in the past but, due to insurance coverage was switched to a generic version which led to the onset of the significant symptoms. Petitioning the insurance company failed to allow for the branded product. We did attempt also a Mirena IUD which did not help. The patient does have a history of 2 previous sections and ultimately asked for definitive therapy with hysterectomy. Given her history, she was taken the operating room where she underwent da Saige robotically assisted laparoscopic hysterectomy with bilateral salpingectomy and diagnostic cystoscopy. She did have moderate adhesions of the omentum to the anterior abdominal wall primarily on the left of the abdomen from just above the umbilicus to near the pelvis at the sigmoid flexure. These were taken down sharply with a LigaSure device. The hysterectomy was accomplished in an uncomplicated fashion and the postprocedural cystoscopy demonstrated no damage to the bladder either from the laparoscopic her cystoscopic side and both ureters were peristalsing normally with ureteral jets seen. Her postoperative course was unremarkable with vital signs or any stable and her temperature was afebrile throughout. She had her catheter removed relatively early in the process and was able to void on her on without difficulty. Her pain was well controlled and she was tolerating regular diet by the evening of day of surgery. She was deemed stable for discharge on post operative day #1 and was discharged home to follow-up in the office in 2 weeks for incision checks and 8 weeks routinely. Discharge instructions included calling for any significantly increased bleeding, fever, pain, incisional complaints, or significant vaginal bleeding, GI or urinary complaints, or anything also concerned her. She was also specifically instructed to have nothing in the vagina for at least 8 weeks time to include intercourse. She understood all of her instructions and agrees follow up as noted above. Discharge medications included only [id number] analgesic pain medications and any medications she may have been taking at home. Discharge hemoglobin and hematocrit were 11.2 and 33.7 respectively. Procedures: #1. Extensive abdominal adhesiolysis #2. Da Saige robotically assisted laparoscopic hysterectomy with bilateral salpingectomy #3. Diagnostic cystoscopy Patient Condition at Discharge: Stable Plan - Discharge Summary Discharge Rx Participant: No New Discharge Prescriptions: No Action Etonogestrel/Ethinyl Estradiol [Nuvaring Vaginal Ring] 1 ring VAGINAL DIRECTED Phentermine HCl 18.75 mg PO AC-BRKFST Vitamin D3/Vitamin K2 (Mk4) [Vitamin K2 Plus D3 Tablet] 1 each PO DAILY L.acidoph,Paracasei, B.lactis [Probiotic] 1 each PO DAILY Discharge Medication List Etonogestrel/Ethinyl Estradiol [Nuvaring Vaginal Ring] 1 ring VAGINAL D IRECTED 06/08/16 [History] L.acidoph,Paracasei, B.lactis [Probiotic] 1 each PO DAILY 04/16/23 [History] Phentermine HCl 18.75 mg PO AC-BRKFST 04/16/23 [History] Vitamin D3/Vitamin K2 (Mk4) [Vitamin K2 Plus D3 Tablet] 1 each PO DAILY 04/16/23 [History] Follow up Appointment(s)/Referral(s): Tad Knott MD [STAFF PHYSICIAN] - 2 Weeks Discharge Disposition: HOME SELF-CARE
[2023-04-21] MEDS ORDERED: ACETAMINOPHEN TAB 325 MG TAB PO PRN (11:45)
== END 2023-04-21 11:43 | disposition home or self-care (01) ==
LOC: OR 07:59 → 4FBP 12:18 → OR 04-21 11:43
PROVIDERS: ATTEND Obstetrics & Gynecology
DX: N80.03 Adenomyosis of the uterus (principal); N92.1 Excessive and frequent menstruation with irregular cycle; N94.10 Unspecified dyspareunia; R10.2 Pelvic and perineal pain; J45.909 Unspecified asthma, uncomplicated; G89.29 Other chronic pain; F17.210 Nicotine dependence, cigarettes, uncomplicated
CPT/HCPCS: 58571; S2900; 81025; 85025; 88307

== ENCOUNTER 2023-04-24 07:27 | Emergency (ER) | payer OTHER ==
[2023-04-24 07:48] VITALS: TEMP 97.8
[2023-04-24] MEDS ORDERED: SODIUM CHLORIDE 0.9% 1,000 ML IV STA (07:55)
[2023-04-24] MEDS ORDERED: HYDROcodone/APAP 5-325MG 1 EACH TAB PO STA (07:55)
[2023-04-24 08:27] LABS: Basophils % (A) 0 %; Eosinophils # (A) 0.2 k/uL (0-0.7); Eosinophils % (A) 2 %; HCT 35.5 % (34.0-46.0); HGB 11.7 gm/dL (11.4-16.0); Lymphocytes # (A) 1.2 k/uL (1.0-4.8); Lymphocytes % (A) 14 %; MCH 29.7 pg (25.0-35.0); MCV 90.1 fL (80.0-100.0); Mean Platelet Volume 7.3; Monocytes # (A) 0.5 k/uL (0-1.0); Monocytes % (A) 5 %; Neutrophils # (A) 7.1 k/uL (1.3-7.7); Neutrophils % (A) 77 %; Platelet Count 272 k/uL (150-450); RBC 3.94 m/uL (3.80-5.40); RDW 12.6 % (11.5-15.5); WBC 9.2 k/uL (3.8-10.6)
[2023-04-24 08:37] LABS: ALT 12 U/L (4-34); AST 16 U/L (14-36); African American GFR (CKD) >90 (>60 ml/min/1.73 sqM); Albumin 3.3 g/dL (3.5-5.0); Alkaline Phosphatase 74 U/L (38-126); Anion Gap 10 mmol/L; Blood Urea Nitrogen 9 mg/dL (7-17); Calcium 8.9 mg/dL (8.4-10.2); Carbon Dioxide 27 mmol/L (22-30); Chloride 102 mmol/L (98-107); Glucose 119 mg/dL (74-99); Lipase 35 U/L (23-300); Non-African American GFR(CKD) >90 (>60 ml/min/1.73 sqM); Potassium 4.3 mmol/L (3.5-5.1); Sodium 139 mmol/L (137-145); Total Bilirubin 0.5 mg/dL (0.2-1.3); Total Protein 6.5 g/dL (6.3-8.2)
--- NOTE | 2023-04-24 09:01 | ED ---
Abdominal Pain HPI - General Chief Complaint: Abdominal Pain Stated Complaint: Post op- Abd pain Time Seen by Provider: 04/24/23 07:39 Source: patient Mode of arrival: ambulatory Limitations: no limitations - History of Present Illness Initial Comments: 47 year old female presents to ed with abdominal pain. Patient has robotic hysterectomy performed Thursday. She states she had several bowel movements on Thursday. Thursday the patient began having intense "gas pain". States she has diffuse abdominal pain and is unable to have bowel movements. she has been using a stool softener without movement. She denies vaginal bleeding or discharge. No lower abdominal pain. No issues with urination. Eating without vomiting. No fevers. No back pain. No other alleviating, precipitating or modifying factors. - Related Data Home Medications Medication Instructions Recorded Confirmed Docusate [Colace] 100 mg PO BID PRN 04/24/23 04/24/23 Ibuprofen [Motrin Ib] 800 mg PO Q8H PRN 04/24/23 04/24/23 Simethicone [Gas-X] 125 mg PO QID PRN 04/24/23 04/24/23 traMADol HCl [Ultram] 50 mg PO Q4HR PRN 04/24/23 04/24/23 Previous Rx's Medication Instructions Recorded Ketorolac [Toradol] 10 mg PO Q8HR PRN #15 tab 04/24/23 Metoclopramide [Reglan] 10 mg PO TID PRN #30 tab 04/24/23 polyethylene glycoL 3350 [Miralax] 17 gm PO BID PRN #527 gm 04/24/23 Allergies Allergy/AdvReac Type Severity Reaction Status Date / Time propoxyphene Allergy Itching Verified 04/24/23 10:42 [From Dar-N] opioids Allergy Rash/Hives Uncoded 04/24/23 10:42 Review of Systems ROS Statement: Those systems with pertinent positive or pertinent negative responses have been documented in the HPI. ROS Other: All systems not noted in ROS Statement are negative. Past Medical History Past Medical History: No Reported History Additional Past Medical History / Comment(s): seasonal allergies History of Any Multi-Drug Resistant Organisms: None Reported Past Surgical History: Appendectomy, Section, Hysterectomy Additional Past Surgical History / Comment(s): 2 secions Past Anesthesia/Blood Transfusion Reactions: No Reported Reaction Additional Past Anesthesia/Blood Transfusion Reaction / Comment(s): no history of blood transfuion.drop in BP with ceserean section Past Psychological History: No Psychological Hx Reported Smoking Status: Never smoker Past Alcohol Use History: Occasional Past Drug Use History: None Reported - Past Family History Mother Family Medical History: No Reported History General Exam Limitations: no limitations General appearance: alert, in no apparent distress Head exam: Present: atraumatic, normocephalic, normal inspection Eye exam: Present: normal appearance, PERRL, EOMI. Absent: scleral icterus, conjunctival injection, periorbital swelling ENT exam: Present: normal exam, mucous membranes moist Neck exam: Present: normal inspection. Absent: tenderness, meningismus, lymphadenopathy Respiratory exam: Present: normal lung sounds bilaterally. Absent: respiratory distress, wheezes, rales, rhonchi, stridor Cardiovascular Exam: Present: regular rate, normal rhythm, normal heart sounds. Absent: systolic murmur, diastolic murmur, rubs, gallop, clicks GI/Abdominal exam: Present: soft, tenderness (generalized), normal bowel sounds, other (incisions - clean, dry, intact). Absent: guarding, rebound, rigid Extremities exam: Present: normal inspection, full ROM, normal capillary refill. Absent: tenderness, pedal edema, joint swelling, calf tenderness Back exam: Present: normal inspection Neurological exam: Present: alert, oriented X3, CN II-XII intact Psychiatric exam: Present: normal affect, normal mood Skin exam: Present: warm, dry, intact, normal color. Absent: rash Course Vital Signs 04/24/23 04/24/23 04/24/23 07:31 09:01 11:41 Temperature 97.8 F Pulse Rate 73 83 95 Respiratory 18 16 16 Rate Blood Pressure 137/81 142/80 149/89 O2 Sat by Pulse 99 100 99 Oximetry Medical Decision Making - Medical Decision Making Was pt. sent in by a medical professional or institution (, PA, [employer], urgent care, hospital, or usp...) When possible be specific @ -No Did you speak to anyone other than the patient for history (EMS, parent, family, police, friend...)? What history was obtained from this source @ -No Did you review nursing and triage notes (agree or disagree)? Why? @ -I reviewed and agree with nursing and triage notes Were old charts reviewed (outside hosp., previous admission, EMS record, old EKG, old radiological studies, urgent care reports/EKG's, usp records)? Report findings @ -I reviewed operative report from Thursday Differential Diagnosis (chest pain, altered mental status, abdominal pain women, abdominal pain men, vaginal bleeding, weakness, fever, dyspnea, syncope, headache, dizziness, GI bleed, back pain, seizure, CVA, palpatations, mental health, musculoskeletal)? @ -constipation, bowel obstruction, adhesions, abscess EKG interpreted by me (3pts min.). @ -Yes and demonstrates sinus tachycardia with a rate of 111. AZ interval 150. QRS 129. QTC of 432. No acute ST segment elevation. Right bundle branch block X-rays interpreted by me (1pt min.). @ -None done CT interpreted by me (1pt min.). @ -yes and does not demonstrate obstruction U/S interpreted by me (1pt. min.). @ -None done What testing was considered but not performed or refused? (CT, X-rays, U/S, labs)? Why? @ -None What meds were considered but not given or refused? Why? @ -None Did you discuss the management of the patient with other professionals (ezekiel landon i.e. , PA, [employer], lab, RT, psych nurse, social and political studies professor, transporter driver, teacher, enforcement officer, case management manager)? Give summary @ -Dr. sheikh as this is his post op patient Was smoking cessation discussed for >3mins.? @ -No Was critical care preformed (if so, how long)? @ -No Were there social determinants of health that impacted care today? How? (Homelessness, low income, unemployed, alcoholism, drug addiction, transportation, low edu. Level, literacy, decrease access to med. care, skilled nursing, rehab)? @ -No Was there de-escalation of care discussed even if they declined (Discuss DNR or withdrawal of care, Hospice)? DNR status @ -No What co-morbidities impacted this encounter? (DM, HTN, Smoking, COPD, CAD, Cancer, CVA, ARF, Chemo, Hep., AIDS, mental health diagnosis, sleep apnea, morbid obesity)? @ -None Was patient admitted / discharged? Hospital course, mention meds given and route, prescriptions, significant lab abnormalities, going to OR and other pertinent info. @ -Discharged. CT performed. Demonstrates no obstruction. Patient provided with several medications to help promote a BM. Spoke with her OBGYN who will follow up with her this week Undiagnosed new problem with uncertain prognosis? @ -No Drug Therapy requiring intensive monitoring for toxicity (Heparin, Nitro, Insul in, Cardizem)? @ -No Were any procedures done? @ -No Diagnosis/symptom? @ -acute abd pain, acute localized ileus, s/p hystertectomy Acute, or Chronic, or Acute on Chronic? @ -acute Uncomplicated (without systemic symptoms) or Complicated (systemic symptoms)? @ -complicated Side effects of treatment? @ -No Exacerbation, Progression, or Severe Exacerbation? @ -No Poses a threat to life or bodily function? How? (Chest pain, USA, VT, pneumonia, PE, COPD, DKA, ARF, appy, cholecystitis, CVA, Diverticulitis, Homicidal, Suicidal, threat to staff... and all critical care pts) @ -No - Lab Data Result diagrams: 04/24/23 08:17 04/24/23 08:17 Lab Results 04/24/23 04/24/23 04/24/23 Range/Units 08:17 08:17 08:17 WBC 9.2 (3.8-10.6) k/uL RBC 3.94 (3.80-5.40) m/uL Hgb 11.7 (11.4-16.0) gm/dL Hct 35.5 (34.0-46.0) % MCV 90.1 (80.0-100.0) fL MCH 29.7 (25.0-35.0) pg MCHC 33.0 (31.0-37.0) g/dL RDW 12.6 (11.5-15.5) % Plt Count 272 (150-450) k/uL MPV 7.3 Neutrophils % 77 % Lymphocytes % 14 % Monocytes % 5 % Eosinophils % 2 % Basophils % 0 % Neutrophils # 7.1 (1.3-7.7) k/uL Lymphocytes # 1.2 (1.0-4.8) k/uL Monocytes # 0.5 (0-1.0) k/uL Eosinophils # 0.2 (0-0.7) k/uL Basophils # 0.0 (0-0.2) k/uL Sodium 139 (137-145) mmol/L Potassium 4.3 (3.5-5.1) mmol/L Chloride 102 (98-107) mmol/L Carbon Dioxide 27 (22-30) mmol/L Anion Gap 10 mmol/L BUN 9 (7-17) mg/dL Creatinine 0.73 (0.52-1.04) mg/dL Est GFR (CKD-EPI)AfAm >90 (>60 ml/min/1.73 sqM) Est GFR (CKD-EPI)NonAf >90 (>60 ml/min/1.73 sqM) Glucose 119 H (74-99) mg/dL Plasma Lactic Acid Buster 1.0 (0.7-2.0) mmol/L Calcium 8.9 (8.4-10.2) mg/dL Total Bilirubin 0.5 (0.2-1.3) mg/dL AST 16 (14-36) U/L ALT 12 (4-34) U/L Alkaline Phosphatase 74 (38-126) U/L Total Protein 6.5 (6.3-8.2) g/dL Albumin 3.3 L (3.5-5.0) g/dL Lipase 35 (23-300) U/L Urine Color Urine Appearance (Clear) Urine pH (5.0-8.0) Ur Specific [place] (1.001-1.035) Urine Protein (Negative) Urine Glucose (UA) (Negative) Urine Ketones (Negative) Urine Blood (Negative) Urine Nitrite (Negative) Urine Bilirubin (Negative) Urine Urobilinogen (<2.0) mg/dL Ur Leukocyte Esterase (Negative) 04/24/23 Range/Units 09:03 WBC (3.8-10.6) k/uL RBC (3.80-5.40) m/uL Hgb (11.4-16.0) gm/dL Hct (34.0-46.0) % MCV (80.0-100.0) fL MCH (25.0-35.0) pg MCHC (31.0-37.0) g/dL RDW (11.5-15.5) % Plt Count (150-450) k/uL MPV Neutrophils % % Lymphocytes % % Monocytes % % Eosinophils % % Basophils % % Neutrophils # (1.3-7.7) k/uL Lymphocytes # (1.0-4.8) k/uL Monocytes # (0-1.0) k/uL Eosinophils # (0-0.7) k/uL Basophils # (0-0.2) k/uL Sodium (137-145) mmol/L Potassium (3.5-5.1) mmol/L Chloride (98-107) mmol/L Carbon Dioxide (22-30) mmol/L Anion Gap mmol/L BUN (7-17) mg/dL Creatinine (0.52-1.04) mg/dL Est GFR (CKD-EPI)AfAm (>60 ml/min/1.73 sqM) Est GFR (CKD-EPI)NonAf (>60 ml/min/1.73 sqM) Glucose (74-99) mg/dL Plasma Lactic Acid Buster (0.7-2.0) mmol/L Calcium (8.4-10.2) mg/dL Total Bilirubin (0.2-1.3) mg/dL AST (14-36) U/L ALT (4-34) U/L Alkaline Phosphatase (38-126) U/L Total Protein (6.3-8.2) g/dL Albumin (3.5-5.0) g/dL Lipase (23-300) U/L Urine Color Colorless Urine Appearance Clear (Clear) Urine pH 6.0 (5.0-8.0) Ur Specific [place] 1.025 (1.001-1.035) Urine Protein Negative (Negative) Urine Glucose (UA) Negative (Negative) Urine Ketones Negative (Negative) Urine Blood Negative (Negative) Urine Nitrite Negative (Negative) Urine Bilirubin Negative (Negative) Urine Urobilinogen <2.0 (<2.0) mg/dL Ur Leukocyte Esterase Negative (Negative) Disposition Clinical Impression: Ileus, Status post hysterectomy Disposition: HOME SELF-CARE Condition: Stable Instructions (If sedation given, give patient instructions): Ileus (ED) Additional Instructions: Please drink plenty of water, exercise. Continue taking the stool softener twice daily. You may additionally start taking MiraLAX twice daily and reglan three times daily. Use the toradol for pain. Please take some sips of the magnesium citrate to additionally help move your bowels should the stool sof tabatha fish and MiraLAX not work. You may take Gas-X or simethicone for any gas pain. Please see Dr. Reeves in office next week and return for any new or worsening symptoms Prescriptions: polyethylene glycoL 3350 [Miralax] 17 gm PO BID PRN #527 gm PRN Reason: Constipation Metoclopramide [Reglan] 10 mg PO TID PRN #30 tab PRN Reason: Nausea Ketorolac [Toradol] 10 mg PO Q8HR PRN #15 tab PRN Reason: Pain Is patient prescribed a controlled substance at d/c from ED?: No Referrals: Jake Person DO [Primary Care Provider] - 1-2 days
[2023-04-24 09:03] VITALS: RESP 16
[2023-04-24 09:13] LABS: Appearance,Urine Clear (Clear); Bilirubin,Urine Negative (Negative); Blood,Urine Negative (Negative); Color,Urine Colorless; Glucose,Urine (UA) Negative (Negative); Ketones,Urine Negative (Negative); Leukocyte Esterase,Urine Negative (Negative); Nitrite,Urine Negative (Negative); Protein,Urine Negative (Negative); Specific Gravity,Urine 1.025 (1.001-1.035); Urobilinogen,Urine <2.0 mg/dL (<2.0)
--- NOTE | 2023-04-24 09:30 | CT ---
EXAMINATION TYPE: CT abdomen pelvis w con CT DLP: 1168.6 mGycm, Automated exposure control for dose reduction was used. DATE OF EXAM: 04/24/2023 8:44 AM COMPARISON: None. CLINICAL INDICATION:Female, 47 years old with history of abdominal pain, recent hysterectomy; ABDOMIN AL/ BOWEL/ GAS PAIN POST HYSTERECTOMY X4 DAY AGO TECHNIQUE: Axial CT of the abdomen and pelvis. Sagittal and coronal reformats were created on a [employer] workstation. Contrast used:100ML mL of Isovue 300 with IV Contrast, (none if empty) Oral contrast used: without Oral Contrast (none if empty) FINDINGS: LOWER CHEST: Unremarkable ABDOMEN LIVER: Unremarkable GALLBLADDER AND BILE DUCTS: Unremarkable gallbladder. No biliary ductal dilatation. PANCREAS: Unremarkable. SPLEEN: Unremarkable. ADRENAL GLANDS: Unremarkable. KIDNEYS AND URETERS: Kidneys enhance symmetrically. No evidence of hydronephrosis or visible renal ca lculus. Kidneys excrete contrast symmetrically. The upper right ureter is slightly full in appearance , nonspecific, without overt hydroureteronephrosis. PELVIS BLADDER: Incompletely distended. A couple of tiny foci may be within the bladder lumen, however could be from recent instrumentation. . REPRODUCTIVE: Uterus is absent status post hysterectomy 4 days ago. There is moderate free fluid seen in the pelvis including the surgical bed. No focal collection seen to suggest abscess. There are sev eral foci of intraperitoneal gas, not unexpected following recent surgery. Ovaries are not clearly se en, uncertain if they remain. ABDOMEN & PELVIS STOMACH AND BOWEL: Stomach and small bowel are nondistended, no evidence of obstruction. There is a single loop of small bowel seen in the central pelvis which is slightly dilated and fluid-filled, thi s may represent localized ileus. Appendix appears surgically absent. Moderate stool throughout the co dora with relatively less distally. No acute abnormality is seen. PERITONEUM/RETROPERITONEUM: No free fluid or free air in the abdomen. VASCULATURE: Aorta and major branches are grossly unremarkable. No AAA. Portal veins are enhancing. Splenic vein is patent. SMV is patent. LYMPH NODES: No gross evidence for lymphadenopathy. SOFT TISSUE/ABDOMINAL WALL: Strandy postop changes/scarring along the anterior abdominal pelvic wall. Small fat-containing umbilical hernia. MUSCULOSKELETAL: No acute osseous abnormalities. IMPRESSION: * Postoperative changes in the pelvis, following recent hysterectomy. * Moderate amount of free pelvic fluid. No focal fluid collection to suggest abscess. * Possible localized ileus in the upper central pelvis.
[2023-04-24] MEDS ORDERED: MAGNESIUM CITRATE 296 ML BOTTLE PO ONE (11:20)
[2023-04-24 11:53] VITALS: BP 149/89; PULSE 95
== END 2023-04-24 11:43 | disposition home or self-care (01) ==
LOC: SUPCPDRO 07:27 → EC 07:27
DX: K56.7 Ileus, unspecified (principal); Z90.710 Acquired absence of both cervix and uterus; Z88.8 Allergy status to other drugs, medicaments and biological substances; Z88.5 Allergy status to narcotic agent
CPT/HCPCS: 99285 ×2; 96360 ×2; 36415; 80053; 83605; 83690; 85025; 81003; 74177; Q9967

== ENCOUNTER → 2023-04-29 | Outpatient (CLI) | payer OTHER ==
--- NOTE | 2023-04-29 15:18 | CT ---
EXAMINATION TYPE: CT urogram wo/w con CT DLP: 3804 mGycm, Automated exposure control for dose reduction was used. DATE OF EXAM: 04/29/2023 2:34 PM COMPARISON: CT abdomen pelvis most recent from 04/24/2023. CLINICAL INDICATION:Female, 47 years old with history of R31.9; PHH, LOWER ABD PAIN/HEMATURIA TECHNIQUE: Urogram with imaging of the abdomen and pelvis. Coronal and sagittal reformats were performed. 2D and 3D reconstructions are performed to assist visualization of the urinary tract on a separate workstat ion. Contrast used:100 mL of Isovue 300 with IV Contrast, Oral contrast used: None. FINDINGS: LOWER CHEST: No significant findings. GENITOURINARY: RIGHT KIDNEY AND URETER: No calculi. No renal mass or other lesions. No urothelial lesions: no fillin g defect, dilation, stricture or wall thickening. Mild hydroureteronephrosis. No obstructing calculus . No evidence for extravasation of contrast on delayed imaging. LEFT KIDNEY AND URETER: No calculi. No renal mass or other lesions. No urothelial lesions: no filling defect, dilation, stricture or wall thickening. Mild hydroureteronephrosis. No obstructing calculus. No evidence for extravasation of contrast on delayed imaging. URINARY BLADDER: REPRODUCTIVE: Unremarkable. ABDOMEN LIVER: Unremarkable. GALLBLADDER AND BILE DUCTS: Unremarkable PANCREAS: Unremarkable. SPLEEN: Unremarkable. ADRENAL GLANDS: Unremarkable. STOMACH AND BOWEL: . No evidence of bowel obstruction. PERITONEUM: No evidence of pneumoperitoneum, or adenopathy. Simple fluid density fluid collection in the deep pelvis surrounded by bowel measuring up to 8.9 x 7.4 x 10.7 cm this is immediately posterio r to the vagina.. Foci of gas seen on prior is no longer visualized. The ureters appear intact. VASCULATURE: No evidence of aortic aneurysm. MUSCULOSKELETAL: No acute osseous abnormalities LYMPH NODES: No gross evidence for lymphadenopathy. SOFT TISSUE/ABDOMINAL WALL: Unremarkable IMPRESSION: 1. Redemonstration of similar deep pelvic fluid collection with simple fluid density. The ureters ap pear intact without evidence of extravasation of excreted IV contrast. Correlate for postop seroma se michele versus lymphocele with abscess felt to be less likely but not excluded, correlate for signs of i nfection. 2. Mild bilateral hydroureteronephrosis likely reactive to surgical changes.
== END | disposition home or self-care (01) ==
LOC: RADFLMAIN 12:40
PROVIDERS: ATTEND Obstetrics & Gynecology
DX: N13.30 Unspecified hydronephrosis (principal); J98.4 Other disorders of lung; R31.9 Hematuria, unspecified
CPT/HCPCS: 74178; 74400; Q9967

== ENCOUNTER → 2023-08-31 | Outpatient (CLI) | payer OTHER ==
--- NOTE | 2023-09-04 08:54 | MM ---
Reason for Exam: Screening (asymptomatic). Baseline mammogram. Patient History: Menarche at age 14. First Full-Term at age 25. Hysterectomy at age 47. Last menstrual period: Risk Values: Angela 5 year model risk: 0.7%. NCI Lifetime model risk: 8.6%. Prior Study Comparison: Patient's first Mammogram. Tissue Density: There are scattered areas of fibroglandular density. Findings: Analyzed By CAD. Right breast: There is no suspicious group of microcalcifications or new suspicious mass. Left breast: Asymmetries upper aspect MLO view approximately 7.5 cm the nipple. These are likely in the lateral aspect on CC view. Overall Assessment: Incomplete: need additional imaging evaluation, BI-RAD 0 Management: Diagnostic Mammogram of the left breast. Spot compression with 3-D of the MLO and [facility] will attempt to contact patient to return for supplemental views and ultrasound if indicated. Patient should continue monthly self-breast exams. A clinical breast exam by your physician is recommended on an annual basis. This exam should not preclude additional follow-up of suspicious palpable abnormalities. Note on Angela scores and lifetime risk: 1. A Angela score greater than 3% is considered moderate risk. If this is the case, consider specialist referral to assess eligibility for a risk reducing agent. 2. If overall lifetime risk for the development of breast cancer is 20% or higher, the patient may qualify for future screening with alternating mammogram and breast MRI. Electronically signed and approved by: Maco Overton DO
== END | disposition home or self-care (01) ==
LOC: RADMAMWWP 14:53
PROVIDERS: ATTEND Family Medicine
DX: Z12.31 Encounter for screening mammogram for malignant neoplasm of breast (principal)
CPT/HCPCS: 77063; 77067

== ENCOUNTER → 2023-09-10 | Outpatient (CLI) | payer OTHER ==
--- NOTE | 2023-09-10 12:50 | MM ---
Reason for Exam: Additional evaluation requested from abnormal screening. Last screening mammogram was performed less than 1 month ago. Patient History: Menarche at age 14. First Full-Term at age 25. Hysterectomy at age 47. Perimenopausal. Patient has history of breast feeding. Risk Values: [place]a 5 year model risk: 0.7%. NCI Lifetime model risk: 8.6%. Prior Study Comparison: 08/31/2023 Bilateral MG 3D screening mammo w/cad, [facility]. Tissue Density: Left: There are scattered areas of fibroglandular density. Findings: Analyzed By CAD. Patchy density persists upper outer quadrant left breast but without any suspicious mass apparent. Given the global asymmetry, further ultrasound evaluation is recommended. We also note a 5 mm low density circumscribed mass approximately 6:00 left breast middle depth which can also be assessed by ultrasound. Overall Assessment: Incomplete: need additional imaging evaluation, BI-RAD 0 Management: Diagnostic Breast Ultrasound of the left breast. Electronically signed and approved by: Isabel Paul M.D. Radiologist
--- NOTE | 2023-09-10 13:35 | USB ---
Reason for Exam: Additional evaluation requested from abnormal screening. Patient History: Menarche at age 14. First Full-Term at age 25. Hysterectomy at age 47. Perimenopausal. Patient has history of breast feeding. Risk Values: Angela 5 year model risk: 0.7%. NCI Lifetime model risk: 8.6%. Technique: Method: Targeted. Doppler: Color. Patient Position: Supine. Prior Study Comparison: 08/31/2023 Bilateral MG 3D screening mammo w/cad, [facility]. Findings: The upper outer quadrant of the left breast, the medial section of the breast of the left breast, the axilla of the left breast and the retroareolar of the left breast were scanned. Ultrasound left breast upper outer quadrant including scanning of the subareolar region and axilla. Additional scanning along the 6:00 position. * Patchy dense tissue is present in the upper outer quadrant. * Additional 3 mm benign cyst 3:00 position or 7 mm from the nipple. * Upon scanning of the 6 clock position, a 4 mm cyst is noted, 5 cm from the nipple, possible mammographic correlate. * No other solid or cystic lesion or axillary lymphadenopathy. Overall Assessment: Probably benign, BI-RAD 3 Management: Diagnostic Mammogram of the left breast in 6 months. A clinical breast exam by your physician is recommended on an annual basis and results should be correlated with mammographic findings. This exam should not preclude additional follow-up of suspicious palpable abnormalities. Results were given to the patient verbally at the time of exam. Electronically signed and approved by: Isabel Paul M.D. Radiologist
== END | disposition home or self-care (01) ==
LOC: RADMAMWWP 12:03
PROVIDERS: ATTEND Family Medicine
DX: N60.02 Solitary cyst of left breast (principal); R92.322 Mammographic fibroglandular density, left breast; N63.20 Unspecified lump in the left breast, unspecified quadrant
CPT/HCPCS: 77061; 77065

== ENCOUNTER 2024-02-04 13:32 | Emergency (ER) | payer OTHER ==
[2024-02-04 14:01] VITALS: TEMP 98.6
--- NOTE | 2024-02-04 14:33 | ED ---
General Adult HPI - General Source: patient, RN notes reviewed Mode of arrival: ambulatory Limitations: no limitations <Imelda Padilla - Last Filed: 02/04/24 14:32> - General Source: patient, family, RN notes reviewed <Katerina Stewart - Last Filed: 02/05/24 00:39> - General Chief complaint: Syncope Stated complaint: Abn Labs Time Seen by Provider: 02/04/24 13:49 - History of Present Illness Initial comments: Quick note46 perfume presents emergency room chief complaint of 2 syncopal events that occurred yesterday within 5 minutes or other. States that she was in a hot tub with her when it was reported that she had a syncopal event. She denies feeling like she was going to pass out before. During the day today she states that she has been having hot flashes and had mild chest pain on the way here. (Imelda Padilla) 48-year-old female presenting to the ER with chief complaint of 2 syncopal episodes yesterday. Patient states she was in a hot tub with her for about 45 minutes when she reports she had 2 syncopal episodes within 5 minutes of each other. Denies injuries from the syncopal episodes. States she did have 2 white claws prior to event and increased her weight loss medication from 7.5 mg to 10 mg, first 10 mg dose was yesterday before syncopal event. Patient reports she has been experiencing a headache for several days with fatigue and intermittent hot flashes and chest pain. States that she currently is asymptomatic. Denies any medical history. She has never had a syncopal episode before. (Katerina Stewart) - Related Data Home Medications Medication Instructions Recorded Confirmed Docusate [Colace] 100 mg PO BID PRN 04/24/23 04/24/23 Ibuprofen [Motrin Ib] 800 mg PO Q8H PRN 04/24/23 04/24/23 Simethicone [Gas-X] 125 mg PO QID PRN 04/24/23 04/24/23 traMADol HCl [Ultram] 50 mg PO Q4HR PRN 04/24/23 04/24/23 Previous Rx's Medication Instructions Recorded Ketorolac [Toradol] 10 mg PO Q8HR PRN #15 tab 04/24/23 Metoclopramide [Reglan] 10 mg PO TID PRN #30 tab 04/24/23 polyethylene glycoL 3350 [Miralax] 17 gm PO BID PRN #527 gm 04/24/23 Allergies Allergy/AdvReac Type Severity Reaction Status Date / Time propoxyphene Allergy Itching Verified 02/04/24 13:58 [From Darvocet-N] opioids Allergy Rash/Hives Uncoded 02/04/24 13:58 Review of Systems ROS Other: All systems not noted in ROS Statement are negative. <Imelda Padilla - Last Filed: 02/04/24 14:32> ROS Other: All systems not noted in ROS Statement are negative. <Katerina Stewart - Last Filed: 02/05/24 00:39> ROS Statement: Those systems with pertinent positive or pertinent negative responses have been documented in the HPI. Past Medical History Past Medical History: No Reported History Additional Past Medical History / Comment(s): seasonal allergies History of Any Multi-Drug Resistant Organisms: None Reported Past Surgical History: Appendectomy, Section, Hysterectomy Additional Past Surgical History / Comment(s): 2 secions Past Anesthesia/Blood Transfusion Reactions: No Reported Reaction Additional Past Anesthesia/Blood Transfusion Reaction / Comment(s): no history of blood transfuion.drop in BP with ceserean section Past Psychological History: No Psychological Hx Reported Smoking Status: Vaper Past Alcohol Use History: Occasional Past Drug Use History: None Reported - Past Family History Mother Family Medical History: No Reported History <Imelda Padilla - Last Filed: 02/04/24 14:32> General Exam Limitations: no limitations <Imelda Padilla - Last Filed: 02/04/24 14:32> General appearance: alert, in no apparent distress Head exam: Present: atraumatic, normocephalic, normal inspection Eye exam: Present: normal appearance, PERRL, EOMI. Absent: scleral icterus, conjunctival injection, periorbital swelling ENT exam: Present: normal exam, mucous membranes moist Neck exam: Present: normal inspection. Absent: tenderness, meningismus, lymphadenopathy Respiratory exam: Present: normal lung sounds bilaterally. Absent: respiratory distress, wheezes, rales, rhonchi, stridor Cardiovascular Exam: Present: regular rate, normal rhythm, normal heart sounds. Absent: systolic murmur, diastolic murmur, rubs, gallop, clicks GI/Abdominal exam: Present: soft, normal bowel sounds. Absent: distended, tenderness, guarding, rebound, rigid Neurological exam: Present: alert, oriented X3 Psychiatric exam: Present: normal affect, normal mood Skin exam: Present: warm, dry, intact, normal color. Absent: rash <Katerina Stewart - Last Filed: 02/05/24 00:39> - General Exam Comments Initial Comments: Visual Physical Exam Vital signs reviewed General: Well-appearing, nontoxic, no acute distress. Head: Normocephalic, atraumatic Eyes: PERRLA, EOMI ENT: Airway patent Chest: Nonlabored breathing Skin: No visual rash, normal skin tone Neuro: Alert and oriented 3 Musculoskeletal: No gross abnormalities (Imelda Padilla) Course Vital Signs 02/04/24 02/04/24 02/04/24 13:59 17:23 19:22 Temperature 98.6 F Pulse Rate 75 72 71 Respiratory 18 20 18 Rate Blood Pressure 162/89 174/96 167/104 O2 Sat by Pulse 100 100 100 Oximetry EKG Findings - EKG Results: EKG: interpreted by ERMD (Normal sinus rhythm with no ST changes. Ventricular rate 71 bpm, MA interval 136, QRS duration 96, QT/QTc 372/395) <Katerina Stewart - Last Filed: 02/05/24 00:39> Medical Decision Making <Imelda Padilla - Last Filed: 02/04/24 14:32> - Lab Data Result diagrams: 02/04/24 14:22 02/04/24 14:22 <Katerina Stewart - Last Filed: 02/05/24 00:39> - Medical Decision Making I completed the quick note portion of this chart signed Imelda Padilla PA-C (Imelda Padilla) Was pt. sent in by a medical professional or institution (YAJAIRA Andrew, [employer]ILD [employer] RE[employer] MANAGER, urgent care, hospital, or [facility]...) When possible be specific @ -No Did you speak to anyone other than the patient for history (EMS, parent, family, police, friend...)? What history was obtained from this source @ -No Did you review nursing and triage notes (agree or disagree)? Why? @ -I reviewed and agree with nursing and triage notes Were old charts reviewed (outside hosp., previous admission, EMS record, old EKG, old radiological studies, urgent care reports/EKG's, [facility] records)? Report findings @ -No old charts were reviewed Differential Diagnosis (chest pain, altered mental status, abdominal pain women, abdominal pain men, vaginal bleeding, weakness, fever, dyspnea, syncope, headache, dizziness, GI bleed, back pain, seizure, CVA, palpatations, mental health, musculoskeletal)? @ -Differential Syncope: Valvular disease, hypertrophic cardiomyopathy, pulmonary embolism, tamponade, tachycardia, bradycardia, IN, hypovolemia, hemorrhage, dissection, anemia, intracranial hemorrhage, seizure, hypoglycemia, carbon monoxide poisoning, this is not meant to be an all-inclusive list. EKG interpreted by me (3pts min.). @ -As above X-rays interpreted by me (1pt min.). @ -Chest x-ray reveals no acute process CT interpreted by me (1pt min.). @ -None done U/S interpreted by me (1pt. min.). @ -None done What testing was considered but not performed or refused? (CT, X-rays, U/S, labs)? Why? @ -Recommended CT head, D-dimer, and urine test to rule out intracranial bleed, PE, and ectopic as causes of danger syncope however patient refused What meds were considered but not given or refused? Why? @ -None Did you discuss the management of the patient with other professionals (professionals i.e. , PA, BUILD AND RELEASE MANAGER, lab, RT, psych nurse, social science teacher, agribusiness professor, teacher, loan workout officer, casework manager)? Give summary @ -No Was smoking cessation discussed for >3mins.? @ -No Was critical care preformed (if so, how long)? @ -No Were there social determinants of health that impacted care today? How? (Homelessness, low income, unemployed, alcoholism, drug addiction, transportation, low edu. Level, literacy, decrease access to med. care, assisted, rehab)? @ -No Was there de-escalation of care discussed even if they declined (Discuss DNR or withdrawal of care, Hospice)? DNR status @ -No What co-morbidities impacted this encounter? (DM, HTN, Smoking, COPD, CAD, Cancer, CVA, ARF, Chemo, Hep., AIDS, mental health diagnosis, sleep apnea, morbid obesity)? @ -None Was patient admitted / discharged? Hospital course, mention meds given and route, prescriptions, significant lab abnormalities, going to OR and other pertinent info. @ -Patient left AGAINST MEDICAL ADVICE. This is a 48-year-old female presenting with 2 episodes of syncope yesterday. Admits dull headache for several days and intermittent dull chest pain. Patient is currently asymptomatic. Patient is hypertensive, otherwise vital signs within acceptable limits. Physical examination is unremarkable. Lab work including CBC, CMP, coags, troponin unremarkable. Chest x-ray reveals no acute process. EKG reveals normal sinus rhythm with no ST changes. I recommended CT head, D-dimer, and urine test to rule out intracranial bleed, PE, and ectopic as these are dangerous causes of syncope, however patient refused. Discussed with patient that her symptoms are concerning for emergent etiology as she had 2 episodes of syncope with alarm symptoms such as headache and intermittent chest pain. D iscussed with patient that leaving AGAINST MEDICAL ADVICE could result in harm and possibly . Patient shows understanding and opts to leave AGAINST MEDICAL ADVICE. Case was discussed with my ED attending Dr. Bear. Undiagnosed new problem with uncertain prognosis? @ -No Drug Therapy requiring intensive monitoring for toxicity (Heparin, Nitro, Insulin, Cardizem)? @ -No Were any procedures done? @ -No Diagnosis/symptom? @ -Syncope Acute, or Chronic, or Acute on Chronic? @ -Acute Uncomplicated (without systemic symptoms) or Complicated (systemic symptoms)? @ -Complicated Side effects of treatment? @ -No Exacerbation, Progression, or Severe Exacerbation? @ -No Poses a threat to life or bodily function? How? (Chest pain, USA, IN, pneumonia, PE, COPD, DKA, ARF, appy, cholecystitis, CVA, Diverticulitis, Homicidal, Suicidal, threat to staff... and all critical care pts) @ -Unknown (Katerina Stewart) - Lab Data Lab Results 02/04/24 02/04/24 02/04/24 Range/Units 14:22 14:22 14:22 WBC 9.8 (3.8-10.6) k/uL RBC 4.44 (3.80-5.40) m/uL Hgb 12.9 (11.4-16.0) gm/dL Hct 38.6 (34.0-46.0) % MCV 86.9 (80.0-100.0) fL MCH 29.1 (25.0-35.0) pg MCHC 33.5 (31.0-37.0) g/dL RDW 12.9 (11.5-15.5) % Plt Count 272 (150-450) k/uL MPV 7.5 Neutrophils % 73 % Lymphocytes % 21 % Monocytes % 4 % Eosinophils % 1 % Basophils % 0 % Neutrophils # 7.1 (1.3-7.7) k/uL Lymphocytes # 2.1 (1.0-4.8) k/uL Monocytes # 0.4 (0-1.0) k/uL Eosinophils # 0.1 (0-0.7) k/uL Basophils # 0.0 (0-0.2) k/uL PT 10.0 (10.0-12.5) sec INR 0.9 (<1.2) APTT 22.1 (22.0-30.0) sec Sodium 139 (137-145) mmol/L Potassium 4.5 (3.5-5.1) mmol/L Chloride 106 (98-107) mmol/L Carbon Dioxide 24 (22-30) mmol/L Anion Gap 9 mmol/L BUN 16 (7-17) mg/dL Creatinine 0.78 (0.52-1.04) mg/dL Est GFR (CKD-EPI)AfAm >90 (>60 ml/min/1.73 sqM) Est GFR (CKD-EPI)NonAf >90 (>60 ml/min/1.73 sqM) Glucose 87 (74-99) mg/dL Calcium 9.6 (8.4-10.2) mg/dL Total Bilirubin 0.8 (0.2-1.3) mg/dL AST 28 (14-36) U/L ALT 15 (4-34) U/L Alkaline Phosphatase 69 (38-126) U/L Troponin I (0.000-0.034) ng/mL Total Protein 7.8 (6.3-8.2) g/dL Albumin 4.5 (3.5-5.0) g/dL 02/04/24 Range/Units 14:22 WBC (3.8-10.6) k/uL RBC (3.80-5.40) m/uL Hgb (11.4-16.0) gm/dL Hct (34.0-46.0) % MCV (80.0-100.0) fL MCH (25.0-35.0) pg MCHC (31.0-37.0) g/dL RDW (11.5-15.5) % Plt Count (150-450) k/uL MPV Neutrophils % % Lymphocytes % % Monocytes % % Eosinophils % % Basophils % % Neutrophils # (1.3-7.7) k/uL Lymphocytes # (1.0-4.8) k/uL Monocytes # (0-1.0) k/uL Eosinophils # (0-0.7) k/uL Basophils # (0-0.2) k/uL PT (10.0-12.5) sec INR (<1.2) APTT (22.0-30.0) sec Sodium (137-145) mmol/L Potassium (3.5-5.1) mmol/L Chloride (98-107) mmol/L Carbon Dioxide (22-30) mmol/L Anion Gap mmol/L BUN (7-17) mg/dL Creatinine (0.52-1.04) mg/dL Est GFR (CKD-EPI)AfAm (>60 ml/min/1.73 sqM) Est GFR (CKD-EPI)NonAf (>60 ml/min/1.73 sqM) Glucose (74-99) mg/dL Calcium (8.4-10.2) mg/dL Total Bilirubin (0.2-1.3) mg/dL AST (14-36) U/L ALT (4-34) U/L Alkaline Phosphatase (38-126) U/L Troponin I <0.012 (0.000-0.034) ng/mL Total Protein (6.3-8.2) g/dL Albumin (3.5-5.0) g/dL Disposition <Imelda Padilla - Last Filed: 02/04/24 14:32> Time of Disposition: 18:56 <Katerina Stewart - Last Filed: 02/05/24 00:39> Clinical Impression: Syncope Disposition: LEFT AGAINST MEDICAL ADVICE Condition: Undetermined Instructions (If sedation given, give patient instructions): Syncope (ED) Additional Instructions: Please follow-up with PCP in 1 to 3 days for reevaluation. Please return to the Emergency Department if symptoms worsen or any other concerns. Referrals: Tomas Alexander MD [Primary Care Provider] - 1-2 days
[2024-02-04 15:00] LABS: Basophils % (A) 0 %; Eosinophils # (A) 0.1 k/uL (0-0.7); Eosinophils % (A) 1 %; HCT 38.6 % (34.0-46.0); HGB 12.9 gm/dL (11.4-16.0); Lymphocytes # (A) 2.1 k/uL (1.0-4.8); Lymphocytes % (A) 21 %; MCH 29.1 pg (25.0-35.0); MCHC 33.5 g/dL (31.0-37.0); MCV 86.9 fL (80.0-100.0); Mean Platelet Volume 7.5; Monocytes # (A) 0.4 k/uL (0-1.0); Monocytes % (A) 4 %; Neutrophils # (A) 7.1 k/uL (1.3-7.7); Neutrophils % (A) 73 %; Platelet Count 272 k/uL (150-450); RBC 4.44 m/uL (3.80-5.40); RDW 12.9 % (11.5-15.5); WBC 9.8 k/uL (3.8-10.6)
[2024-02-04 15:24] LABS: ALT 15 U/L (4-34); African American GFR (CKD) >90 (>60 ml/min/1.73 sqM); Albumin 4.5 g/dL (3.5-5.0); Anion Gap 9 mmol/L; Blood Urea Nitrogen 16 mg/dL (7-17); Calcium 9.6 mg/dL (8.4-10.2); Carbon Dioxide 24 mmol/L (22-30); Chloride 106 mmol/L (98-107); Glucose 87 mg/dL (74-99); Non-African American GFR(CKD) >90 (>60 ml/min/1.73 sqM); Sodium 139 mmol/L (137-145); Total Bilirubin 0.8 mg/dL (0.2-1.3); Total Protein 7.8 g/dL (6.3-8.2)
[2024-02-04 15:45] LABS: AST 28 U/L (14-36); Alkaline Phosphatase 69 U/L (38-126); Potassium 4.5 mmol/L (3.5-5.1)
[2024-02-04 15:57] LABS: INR 0.9 (<1.2); Partial Thromboplastin Time 22.1 sec (22.0-30.0)
--- NOTE | 2024-02-04 17:19 | XR ---
EXAMINATION TYPE: XR chest 2V DATE OF EXAM: 02/04/2024 4:57 PM CLINICAL INDICATION: Female, 48 years old with history of syncope; COMPARISON: None TECHNIQUE: XR chest 2V Frontal and lateral views of the chest. FINDINGS: Lungs/Pleura: There is no evidence of pleural effusion, focal consolidation, or pneumothorax. Pulmonary vascularity: Unremarkable. Heart/mediastinum: Cardiomediastinal silhouette is unremarkable. Musculoskeletal: No acute osseous pathology. IMPRESSION: No acute cardiopulmonary disease/process. [facility], , 02/04/2024 5:17 PM
[2024-02-04 19:24] VITALS: BP 167/104; PULSE 71; RESP 18
== END 2024-02-04 19:24 | disposition left against medical advice (07) ==
LOC: EC 13:32
CPT/HCPCS: 36415; 71046; 80053; 84484; 85025; 85610; 85730; 93005; 99284